=== PATIENT | female | born 1930 | race Caucasian/White ===

== ENCOUNTER 2017-07-01 12:56 | Observation (INO) | payer MEDICARE, BC ==
--- NOTE | 2017-07-01 14:33 | CT ---
CT OF BRAIN PERFORMED WITHOUT CONTRAST ENHANCEMENT: COMPARISON: 05/21/17 study. HISTORY: Dizziness today. History of meningioma. FINDINGS: Postoperative changes with craniotomy changes of the left frontal bone are again noted. There is un derlying encephalomalacia change in this area. 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 No signs of intracerebral hemorrhage or extraaxial fluid collections. The mastoid air cells and visualized sinuses are clear. IMPRESSION: No acute intracranial abnormalities. POS: [facility]
--- NOTE | 2017-07-01 14:34 | RAD ---
PORTABLE CHEST: HISTORY: Syncope. FINDINGS: The heart size is borderline considering portable technique. There are atherosclerotic changes of t he aorta. Lungs show some mild chronic change. IMPRESSION: Borderline to minimal cardiomegaly. No acute process. POS: [facility]
[2017-07-01 14:55] LABS: #Basophils 0.1 thou/uL (0.0-0.2); #Eosinphils 0.2 thou/uL (0.0-0.7); #Lymphocytes 1.2 thou/uL (1.20-3.40); #Monocytes 0.5 thou/uL (0.11-0.59); %Basophils 0.8 % (0.0-1.0); %Eosinophils 2.6 % (0.0-10.0); %Lymphocytes 17.4 % (21.0-51.0); %Monocytes 6.6 % (0.0-10.0); Hematocrit 44.5 % (36.0-47.0); Mean Platelet Volume 7.9 fL (7.4-10.4); Red Blood Cell (RBC) Count 4.44 mill/uL (4.20-5.40); White Blood Cell (WBC) Count 6.9 thou/uL (4.8-10.8)
[2017-07-01 15:19] LABS: ALT (SGPT) 18 U/L (8-55); AST (SGOT) 23 U/L (5-34); Alkaline Phosphatase 104 U/L (40-150); Anion Gap 14 mmol/L (10-20); BUN (Urea Nitrogen) 32 mg/dL (9.8-20.1); Bilirubin, Total 0.4 mg/dL (0.2-1.2); CK (CPK) 192 U/L (29-168); Calc. Creatinine Clearance 0 mL/min (70-130); Calcium 8.7 mg/dL (7.8-10.44); Carbon Dioxide 26 mmol/L (23-31); Chloride 104 mmol/L (98-107); Estimated GFR-MDRD 36; Globulin 2.8 g/dL (2.4-3.5); Lipase 26 U/L (8-78); Protein, Total 6.3 g/dL (6.0-8.3)
[2017-07-01 17:02] LABS: Bilirubin Negative (Negative); Blood, Urine Negative (Negative); Glucose, Urine (Dipstick) Negative (Negative); Ketone, Urine Negative (Negative); Nitrite Negative (Negative); Protein, Urine (Dipstick) Negative (Neg-Trace); Urobilinogen 0.2 mg/dL (0.2-1.0)
[2017-07-01 17:05] LABS: Hyaline Casts/LPF 4-6 HYALINE CAST LPF (0-3 Hyaline); Squamous Epithelial 0-3 HPF (0-3)
[2017-07-01 17:20] LABS: Bacteria/HPF 3+ HPF (None Seen); RBC/HPF None Seen HPF (0-3)
[2017-07-01] MEDS ORDERED: Potassium Chloride 20 MEQ TAB ONE ×2 (17:57→17:58)
[2017-07-01] MEDS ORDERED: Sodium Chloride 0.9% 100 ML ONE (17:58)
[2017-07-01] MEDS ORDERED: cefTRIAXone\\ROCEPHIN 1 GM VIAL ONE (17:58)
[2017-07-01] MEDS ORDERED: Ondansetron HCl/PF 4 MG/2 ML Vial IVP PRN (20:05)
[2017-07-01] MEDS ORDERED: Mag-Al 1200 mg/1200 mg/30 ML UDCUP PO PRN (20:05)
[2017-07-01] MEDS ORDERED: Acetaminophen 325 MG TAB PO PRN (20:05)
[2017-07-01] MEDS ORDERED: Ondansetron ODT 4 MG TAB PO PRN (20:05)
[2017-07-01 20:09] VITALS: BMI 30.9
--- NOTE | 2017-07-01 20:16 | HP ---
PRIMARY CARE PHYSICIAN: Dr. Parekh. CHIEF COMPLAINT: Feeling dizzy and off balance. HISTORY OF PRESENT ILLNESS: Ms. Rm is a pleasant 87-year-old female that since then she was doing fine until earlier today around 01:00, she had gone out to eat with a friend and she says that after eating she was getting up to walk across the room when she felt dizzy and off balance and says that she was stumbling and her friend had to help her out. She does admit that earlier that day most of the day she was feeling bad \\\\"all morning.\\\\" She denies having any headache or chest pain and no focal weakness. She does admit that she had decreased how much she takes in as far as her fluids b ecause she was concerned that she had to go to the bathroom more often. She says that she has notic ed increased urine output, but she says that she has noticed some urinary frequency and some difficu lty controlling the urine, but no dysuria, no fevers, no chills, no abdominal pain. In the ER, she had a CT scan of the brain, which showed no significant changes. However, it is noted that she did have recent surgery for meningioma, but no new changes there. However, urine test did show positive leukocytes as well as 3+ bacteria and her creatinine was also elevated and it is suspected that she has some mild acute renal failure as well as a urinary tract infection, which likely caused her sym ptoms. REVIEW OF SYSTEMS: General: She has had no fevers, no chills, no night sweats, no weight loss. HE ENT: No headaches, but she has had some dizziness. No sore throat, rhinorrhea, neck pain, no adeno misael. Pulmonary: No hemoptysis, no cough, no wheezing. Cardiovascular: No chest pain, no shortn ess of breath, no PND, no orthopnea. Gastrointestinal: No abdominal pain, no nausea, no vomiting, no change in bowels. Genitourinary: No urinary frequency, hematuria, no hesitancy. Neurologic: N o focal weakness or seizure. Psychiatric: No symptoms of anxiety or depression. Skin and integume nt: No skin changes. No rash. PAST MEDICAL HISTORY: Significant for hypertension, elevated cholesterol, frequent urinary tract in fections as well as memory loss. PAST SURGICAL HISTORY: She has had a meningioma resected, thyroidectomy, tonsillectomy and hysterec edie. ALLERGIES: No known drug allergies. SOCIAL HISTORY: She is . She lives at [facility]. She is a nonsmoker, nondrinker, has tw o children. FAMILY HISTORY: Significant for lung disease and lung cancer. CURRENT MEDICATIONS: Include aspirin 81 mg daily, Bystolic 20 mg daily, Namenda 5 mg twice a day, l evothyroxine 125 mcg daily, losartan/hydrochlorothiazide 100/25 one tablet daily, Super B-Complex on ce a day and PreserVision 2 tablets once a day. PHYSICAL EXAMINATION: GENERAL: She is alert and oriented. She appears to be in no acute distress. Currently, she says t hat she feels fine. VITAL SIGNS: Blood pressure was 136/58, heart rate 63, respiratory rate of 14, temperature is 97.6. HEENT: Pupils are equal, round, and reactive. Extraocular muscles are intact. Her sclerae are ani cteric. Throat: No erythema, no exudates. NECK: No adenopathy, no bruits. LUNGS: Clear. No wheezing, no rales. CARDIOVASCULAR: She has a normal S1, S2. I did not appreciate an S3 or S4. No murmurs, clicks, no rubs. ABDOMEN: Soft, it is nontender, nondistended. Positive for bowel sounds. No rebound, no guarding. EXTREMITIES: There is no edema. NEUROLOGIC: The exam is grossly nonfocal. SIGNIFICANT LABORATORY RESULTS: Urinalysis showed large leukocyte esterase, greater than 50 wbc's, 3+ bacteria. White blood cell count 6.9, hemoglobin 14.9, hematocrit is 44.5, platelet count is 233 . Sodium 141, potassium 3.1, chloride is 104, CO2 is 26, BUN of 32, creatinine 1.39, glucose is 121 . ASSESSMENT AND PLAN: This is a pleasant 87-year-old female that presents with dizziness and some we akness, likely as a result of some mild acute renal failure and dehydration. The urinary tract infe ction likely contributed as well. She has had some what sounds like mild urinary incontinence or ur ge incontinence. She will be admitted to the medical floor, started on IV fluids and empiric IV ant ibiotics. Urine cultures have been taken from the ER. We will place her on Rocephin and Levaquin, pending results of her cultures, and get a PT and OT consult and reassess her in the a.m.
[2017-07-01] MEDS: levETIRAcetam 500 MG TAB PO SCH (20:46)
[2017-07-01] MEDS: NS 0.9% w/ 20 MEQ KCL 1,000 ML/1,000 ML BAG IV SCH (21:58)
[2017-07-02 04:34] LABS: #Eosinphils 0.3 thou/uL (0.0-0.7); #Lymphocytes 1.8 thou/uL (1.20-3.40); #Monocytes 0.7 thou/uL (0.11-0.59); #Neutrophils 4.3 thou/uL (1.40-6.50); %Basophils 0.4 % (0.0-1.0); %Eosinophils 4.4 % (0.0-10.0); %Lymphocytes 25.1 % (21.0-51.0); %Monocytes 9.4 % (0.0-10.0); Hematocrit 37.1 % (36.0-47.0); Mean Platelet Volume 7.4 fL (7.4-10.4); Red Blood Cell (RBC) Count 3.71 mill/uL (4.20-5.40); White Blood Cell (WBC) Count 7.1 thou/uL (4.8-10.8)
[2017-07-02 04:59] LABS: Anion Gap 10 mmol/L (10-20); BUN (Urea Nitrogen) 30 mg/dL (9.8-20.1); Calc. Creatinine Clearance 47 mL/min (70-130); Calcium 8.1 mg/dL (7.8-10.44); Carbon Dioxide 25 mmol/L (23-31); Chloride 110 mmol/L (98-107); Estimated GFR-MDRD 46
[2017-07-02] MEDS: Levothyroxine Sodium 125 MCG TAB PO SCH (05:44)
[2017-07-02] MEDS: Enoxaparin Sodium 30 MG/0.3 ML SYRINGE SC SCH (08:05)
[2017-07-02] MEDS: NS 0.9% w/ 20 MEQ KCL 1,000 ML/1,000 ML BAG IV SCH ×2 (08:05→17:10)
[2017-07-02] MEDS: Atorvastatin Calcium 20 MG TAB PO SCH (08:06)
[2017-07-02] MEDS: Nebivolol HCl 5 MG TAB PO SCH (08:06)
[2017-07-02] MEDS: levETIRAcetam 500 MG TAB PO SCH ×2 (08:06→20:33)
--- NOTE | 2017-07-02 12:37 | PDOC.PN ---
- Subjective Encounter Start Date: 07/02/17 Encounter Start Time: 12:35 Ms. Rm feels fine, except she notes loose stools which she has been having for several weeks. She denies any abdominal pain with it, and says she has about 2- 3 stools a day. She says they give her " something for it" at [facility], but it never goes completely away. - Objective Resuscitation Status: Resuscitation Status FULL:Full Resuscitation MAR Reviewed: Yes Vital Signs & Weight: Vital Signs (12 hours) Temp Pulse Pulse Pulse Pulse Resp BP 07/02/17 10:49 97.7 F 60 16 07/02/17 09:13 60 62 63 143/75 H 07/02/17 07:54 97.3 F L 58 L 16 07/02/17 07:05 97.3 F L 58 L 16 07/02/17 04:20 97.7 F 55 L 16 BP BP BP Pulse Ox Pulse Ox 07/02/17 10:49 142/65 H 97 07/02/17 09:13 175/73 H 142/69 H 100 07/02/17 07:54 07/02/17 07:05 136/68 97 07/02/17 04:20 152/66 H 95 Weight Weight 180 lb I&O: 07/01/17 07/02/17 07/03/17 06:59 06:59 06:59 Intake Total 1174 Output Total 400 Balance 774 Result Diagrams: 07/02/17 04:21 07/02/17 04:21 Phys Exam - Physical Examination HEENT: PERRLA Respiratory: no wheezing, no rales, no rhonchi, clear to auscultation bilateral Cardiovascular: RRR, no significant murmur, no rub Gastrointestinal: soft, non-tender, positive bowel sounds Musculoskeletal: no edema Dx/Plan (1) Diarrhea Code(s): R19.7 - DIARRHEA, UNSPECIFIED Status: Acute (2) Dementia Code(s): F03.90 - UNSPECIFIED DEMENTIA WITHOUT BEHAVIORAL DISTURBANCE Status: Chronic Qualifiers: (3) Obesity (BMI 30.0-34.9) Code(s): E66.9 - OBESITY, UNSPECIFIED Status: Chronic (4) Old cerebrovascular accident (CVA) 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 * Dementia- stable
[2017-07-02] MEDS ORDERED: cefTRIAXone\\ROCEPHIN 1 GM in Sodium Chloride 0.9% 100 ML IVPB SCH (18:00)
[2017-07-03] MEDS: Levothyroxine Sodium 125 MCG TAB PO SCH (04:36)
[2017-07-03 07:44] VITALS: TEMP 98.3
[2017-07-03] MEDS: Atorvastatin Calcium 20 MG TAB PO SCH (07:50)
[2017-07-03] MEDS: Nebivolol HCl 5 MG TAB PO SCH (07:50)
[2017-07-03] MEDS: levETIRAcetam 500 MG TAB PO SCH (07:50)
[2017-07-03] MEDS: Enoxaparin Sodium 30 MG/0.3 ML SYRINGE SC SCH (07:52)
[2017-07-03 11:16] VITALS: BP 165/83
--- NOTE | 2017-07-03 13:19 | PDOC.PN ---
- Subjective Encounter Start Date: 07/03/17 Encounter Start Time: 13:18 Ms. Rm says she feels better. She was seen up walking with PT. - Objective Resuscitation Status: Resuscitation Status FULL:Full Resuscitation MAR Reviewed: Yes Vital Signs & Weight: Vital Signs (12 hours) Temp Pulse Resp BP BP Pulse Ox 07/03/17 10:39 165/83 H 07/03/17 08:00 98.3 F 55 L 16 07/03/17 07:12 98.3 F 55 L 16 213/83 H 100 07/03/17 04:33 97.8 F 62 16 158/68 H 98 Weight Weight 181 lb I&O: 07/02/17 07/03/17 07/04/17 06:59 06:59 06:59 Intake Total 1174 1460 250 Output Total 400 800 Balance 774 660 250 Result Diagrams: 07/02/17 04:21 07/02/17 04:21 Phys Exam - Physical Examination HEENT: PERRLA Respiratory: no wheezing, no rales, no rhonchi, clear to auscultation bilateral Cardiovascular: RRR, no significant murmur, no rub Gastrointestinal: soft, non-tender, positive bowel sounds Musculoskeletal: no edema Dx/Plan (1) Diarrhea Code(s): R19.7 - DIARRHEA, UNSPECIFIED Status: Acute (2) Dementia Code(s): F03.90 - UNSPECIFIED DEMENTIA WITHOUT BEHAVIORAL DISTURBANCE Status: Chronic Qualifiers: (3) Obesity (BMI 30.0-34.9) Code(s): E66.9 - OBESITY, UNSPECIFIED Status: Chronic (4) Old cerebrovascular accident (CVA) without late effect Code(s): Z86.73 - PRSNL HX OF TIA (TIA), AND CEREB INFRC W/O RESID DEFICITS Status: Chronic (5) UTI (urinary tract infection) Status: Ruled-out - Plan * UTI- unfortunately the sample was more consistent with a contaminated sample * Diarrhea- she had C. Diff antigen positive, and toxin negative. Since she is symptomatic, will treat with a course of Flagyl, and continue a probiotic * HTN- blood pressure is elevated- prefer for her Primary Care Provider to handle this as an outpatient * Stable for discharge home..
--- NOTE | 2017-07-03 17:06 | DIS ---
PRIMARY CARE PHYSICIAN: Feliz Parekh MD DATE OF ADMISSION: 07/01/2017 DATE OF DISCHARGE: 07/03/2017 DISCHARGE DISPOSITION: Home. DISCHARGE DIAGNOSES: 1. Urinary tract infection. 2. Clostridium difficile diarrhea. 3. Hypertension, uncontrolled. 4. Elevated cholesterol. DISCHARGE MEDICATIONS: Include Flagyl 500 mg 1 p.o. t.i.d. for 7 days as well as Florastor 250 mg 1 p.o. daily for 30 days. She is to continue Keppra 250 mg twice daily, Super B-Complex 150 mg daily , vitamin A and C 2 tablets twice a day, Seroquel 25 mg twice a day, Bystolic 20 mg daily, Namenda 5 mg twice a day, losartan and hydrochlorothiazide 100/25 one tablet daily, levothyroxine 125 mcg p.o . daily, Lipitor 20 mg daily, and aspirin 81 mg a day. CODE STATUS: FULL CODE. ALLERGIES: No known drug allergies. HOSPITAL COURSE: Ms. Rm is an 87-year-old female who presented to the emergency room after feeling dizzy and off balance. Her initial evaluation in the ER was essentially negative except for 3+ dickson teria and positive leukocytes on her urinalysis. She was brought in for presumed urinary tract infe ction causing her symptoms. However, after she had been admitted a day or two, she revealed that halie mata has been having diarrhea for several weeks, what she says at the [facility] they had not been ab le to \\\\"get rid of it.\\\\" Stool studies were done and demonstrated that she had C. diff antigen po sitive, toxin negative situation and since she is symptomatic, this will be treated. Her urine cult ure grew multiple organisms with less than 100,000 colony forming units, and therefore, was consider ed a contaminant, and in retrospect, she had very minimal urinary tract symptoms to begin with, so t his is likely asymptomatic bacteriuria. She will, therefore, be discharged back to [facility] ass isted living on medication for C. difficile as well as a probiotic. It was also noted that her bloo d pressure was more or less labile but more on the higher side. Since she is in advanced age, I am reluctant to adjust her medications here in the hospital while sending her home. Therefore, we will leave this up to her primary care physician to make the small changes if needed as it is noted that she had been off her antihypertensive, the losartan and hydrochlorothiazide, due to some renal insu fficiency. It is possible that once if this is restarted, her blood pressure may normalize. Yaneth gutierrez, this can be managed as an outpatient and she will be discharged home today and we recommend possibly home PT and OT.
== END 2017-07-03 16:55 | disposition home or self-care (01) ==
LOC: ERS 12:56 → 2SW 18:01
PROVIDERS: ADMIT Internal Medicine; ATTEND Internal Medicine
DX: N39.0 Urinary tract infection, site not specified (principal); I10 Essential (primary) hypertension; E78.00 Pure hypercholesterolemia, unspecified; Z79.82 Long term (current) use of aspirin; Z79.899 Other long term (current) drug therapy; Z90.710 Acquired absence of both cervix and uterus; Z90.89 Acquired absence of other organs; Z98.890 Other specified postprocedural states
CPT/HCPCS: 70450; 71010; 80048; 80053; 82274; 82550; 82553; 83690; 84439; 84443; 84484; 85025 ×2; 87086; 87324; 87449 ×2; 93005; 96361; 96365; 96366 ×3; 96367; 96372 ×2; 97139 ×3; 99285; G0378; G8978; G8979; G8980; 36415; 81003; 81015; A4216; J0696; J1650; J1956; J7050

== ENCOUNTER 2017-07-05 12:32 | Outpatient (CLI) | payer MEDICARE, BC | END 2017-07-05 12:33 | disposition home or self-care (01) | LOC: EEG 12:32 | PROVIDERS: ATTEND Student in an Organized Health Care Education/Training Program | DX: D32.9 Benign neoplasm of meninges, unspecified (principal); G93.9 Disorder of brain, unspecified; D43.2 Neoplasm of uncertain behavior of brain, unspecified | CPT/HCPCS: 95816 ==

== ENCOUNTER 2017-07-10 11:46 | Observation (INO) | payer MEDICARE, BC ==
[2017-07-10 12:40] LABS: #Basophils 0.1 thou/uL (0.0-0.2); #Eosinphils 0.3 thou/uL (0.0-0.7); #Lymphocytes 1.7 thou/uL (1.20-3.40); #Monocytes 0.6 thou/uL (0.11-0.59); #Neutrophils 4.9 thou/uL (1.40-6.50); %Basophils 1.1 % (0.0-1.0); %Eosinophils 3.3 % (0.0-10.0); %Lymphocytes 22.2 % (21.0-51.0); %Monocytes 8.5 % (0.0-10.0); Hematocrit 44.3 % (36.0-47.0); Mean Platelet Volume 7.7 fL (7.4-10.4); Red Blood Cell (RBC) Count 4.38 mill/uL (4.20-5.40); White Blood Cell (WBC) Count 7.6 thou/uL (4.8-10.8)
[2017-07-10 12:58] LABS: ALT (SGPT) 47 U/L (8-55); AST (SGOT) 63 U/L (5-34); Alkaline Phosphatase 95 U/L (40-150); Anion Gap 13 mmol/L (10-20); BUN (Urea Nitrogen) 20 mg/dL (9.8-20.1); Bilirubin, Total 0.5 mg/dL (0.2-1.2); CK (CPK) 215 U/L (29-168); Calc. Creatinine Clearance 0 mL/min (70-130); Calcium 8.8 mg/dL (7.8-10.44); Carbon Dioxide 26 mmol/L (23-31); Chloride 104 mmol/L (98-107); Estimated GFR-MDRD 46; Globulin 2.7 g/dL (2.4-3.5); Protein, Total 6.2 g/dL (6.0-8.3)
[2017-07-10 12:58] LABS: Bilirubin Negative (Negative); Glucose, Urine (Dipstick) Negative (Negative); Ketone, Urine Negative (Negative); Nitrite Negative (Negative); Protein, Urine (Dipstick) Negative (Neg-Trace); Urobilinogen 0.2 mg/dL (0.2-1.0)
[2017-07-10 13:00] LABS: Bacteria/HPF None Seen HPF (None Seen); Hyaline Casts/LPF 0-3 HYALINE CAST LPF (0-3 Hyaline); WBC/HPF 0-3 HPF (0-3)
[2017-07-10 13:00] LABS: Troponin I Less than 0.010 ng/mL (< 0.028)
[2017-07-10 13:13] LABS: Blood, Urine Negative (Negative); RBC/HPF 0-3 HPF (0-3); Yeast-All Forms Rare HPF (None Seen)
[2017-07-10] MEDS ORDERED: traMADol HCl 50 MG TAB PO PRN (13:44)
[2017-07-10] MEDS ORDERED: Diabetic Tussin 200 MG/10 ML UDCUP PO PRN (13:44)
[2017-07-10] MEDS ORDERED: Bisacodyl 5 MG TAB PO PRN ×2 (13:44)
[2017-07-10] MEDS ORDERED: traZODone HCl 50 MG TAB PO PRN (13:44)
[2017-07-10] MEDS ORDERED: Nitroglycerin 0.4 MG TAB (25 Tab Bottle) SL PRN (13:44)
[2017-07-10] MEDS ORDERED: Calcium Carbonate 500 MG ChewTAB PO PRN (13:44)
[2017-07-10] MEDS ORDERED: Loratadine 10 MG TAB PO PRN (13:44)
[2017-07-10] MEDS ORDERED: Senokot 8.6 MG TAB PO PRN (13:44)
[2017-07-10] MEDS ORDERED: Acetaminophen 325 MG TAB PO PRN (13:44)
[2017-07-10] MEDS ORDERED: Benzonatate 100 MG CAP PO PRN (13:44)
[2017-07-10] MEDS ORDERED: Mag-Al 1200 mg/1200 mg/30 ML UDCUP PO PRN (13:44)
[2017-07-10] MEDS ORDERED: Ondansetron HCl/PF 4 MG/2 ML Vial IVP PRN (13:44)
[2017-07-10 13:47] LABS: Lactic Acid - Sepsis 3.1 mmol/L (0.5-2.2)
[2017-07-10] MEDS ORDERED: Potassium Chloride 40 MEQ in Sodium Chloride 0.9% 500 ML IVPB SCH (14:45)
[2017-07-10 15:56] VITALS: BMI 32.5
[2017-07-10] MEDS ORDERED: FLU VACC TS2017-18 (>65YR) 0.5 ML SYRINGE IM ONE (16:15)
--- NOTE | 2017-07-10 16:27 | HP ---
DATE OF ADMISSION: 07/10/2017 PRIMARY CARE PHYSICIAN: Feliz Parekh MD CHIEF COMPLAINT: Feeling dizzy and then having a syncopal episode. HISTORY OF PRESENT ILLNESS: Ms. Rm is a very pleasant 87-year-old female with past medical history of meningioma of the brain, status post resection earlier this year as well as history of hypertens ion and recent C. difficile colitis who presented with the above-mentioned complaint. History is ma inly obtained by the patient herself and electronic medical records have been reviewed in detail. T he case has been discussed with the admitting ER physician, Dr. Stallworth. The patient was last admitted to our facility recently from 07/01/2017 to 07/03/2017. At this time, she was treated for C. difficile diarrhea and was discharged on Flagyl. She lives in [facility]. The patient has some dementia and is not a very good historian. According to the reports, she has b een feeling fine up until today when she had one episode of vomiting. Otherwise, she denies any rec ent illnesses. When asked about her diarrhea, she reports that her diarrhea has been consistent for the last several months. She seemed confused as to how long it has been going on. She reports mul tiple episodes of loose stools every day. She only had one episode of vomiting today. She denies a ny abdominal pain. She denies any chest pain, palpitation, shortness of breath, fever, or chills. She denies any dysuria, frequency, or urgency. According to the ER physician, EMS reported that the patient had a syncopal episode. Nevertheless, when the patient was brought into the emergency room , she was hemodynamically stable. Her initial workup included a 12-lead EKG, which shows sinus bogdan ycardia at 58 beats per minute. There is one rhythm strip that captured a left bundle branch block. Her blood pressure was 120/72 with a pulse of 62 upon presentation. Her lab shows mildly elevated creatinine kinase at 215 with CK-MB of 9.3 with normal troponin. Her creatinine is slightly bumped up to 1.12. Lactic acid is 3.1. Urinalysis shows moderate leukocyte esterase with squamous epithe lial cells. Chest x-ray was not done in the ER. She is now being admitted for further workup of sy ncope. PAST MEDICAL HISTORY: 1. History of meningioma, status post resection, 03/2017. 2. History of seizure disorder. 3. Dementia. 4. History of CVA. 5. Obesity. 6. History of chronic atrial fibrillation, rate controlled, not on any anticoagulation. 7. Hypothyroidism. 8. History of subdural hematoma. 9. History of UTIs. PAST SURGICAL HISTORY: 1. Craniotomy and tumor resection on 03/17/2017 for WHO grade II atypical meningioma. 2. Thyroidectomy. 3. Tonsillectomy 4. Hysterectomy. ALLERGIES: No known medication allergies. SOCIAL HISTORY: She is and currently lives at [facility]. Her daughter lives close by an d is . She has no history of drug, tobacco, or alcohol abuse. CODE STATUS: Do not resuscitate, do not intubate. I have discussed this with the patient who santiago sueroed understanding. FAMILY HISTORY: Significant for lung cancer. CURRENT MEDICATIONS: As per the most recent discharge orders from 7 days ago, she is on Keppra 250 mg p.o. b.i.d., vitamin B complex, multivitamin, Florastor daily, Seroquel 25 mg p.o. b.i.d., Bystol ic 20 mg daily, memantine 5 mg p.o. b.i.d., losartan/hydrochlorothiazide 100/25 mg daily, Synthroid 125 mcg daily, Lipitor 20 mg daily, and aspirin 81 mg daily. REVIEW OF SYSTEMS: The following complete review of systems was negative, unless otherwise mentione d in the HPI or below: CONSTITUTIONAL: Weight loss or gain, ability to conduct usual activities. SKIN: Rash, itching. EYES: Double vision, pain. ENT/MOUTH: Nose bleeding, neck stiffness, pain, tenderness. CARDIOVASCULAR: Palpitations, dyspnea on exertion, orthopnea. RESPIRATORY: Shortness of breath, wheezing, cough, hemoptysis, fever or night sweats. GASTROINTESTINAL: Poor appetite, abdominal pain, heartburn, nausea, vomiting, constipation, or diar laisha. GENITOURINARY: Urgency, frequency, dysuria, nocturia. MUSCULOSKELETAL: Pain, swelling. NEUROLOGIC/PSYCHIATRIC: Anxiety, depression. ALLERGY/IMMUNOLOGIC: Skin rash, bleeding tendency. It is negative except for those mentioned in the history and physical. LABORATORY AND DIAGNOSTIC DATA: Her CBC shows WBC is 7.6 with 64% neutrophils, hemoglobin and hemat ocrit within normal limits, platelet count within normal limits. Serum chemistries show potassium o f 3.3, creatinine 1.12 with baseline creatinine being normal. Lactic acid initially at 3.1. TSH no rmal. Lipid panel normal, troponin is less than 0.010. Urinalysis, trace leukocyte esterase, but w ith squamous epithelial cells. A 12-lead EKG by my review showed sinus bradycardia with left axis d eviation. No acute ST or T wave changes. PHYSICAL EXAMINATION: VITAL SIGNS: Upon presentation include blood pressure 120/72, pulse is 62, oxygen saturation 95% on room air, respirations 15, temperature 97.9. GENERAL: She is sitting upright in bed, appears somewhat slow, but appropriate. No acute distress. Awake, alert, oriented x3. Age appropriate. HEENT: Mucous membrane is moist and pink. No oropharyngeal exudate or erythema. Head is normoceph alic, atraumatic. Nystagmus is present. No conjunctival pallor. No scleral icterus. NECK: Supple without any lymphadenopathy, JVD, or bruit. CHEST: Clear to auscultation without any wheezing, rales, or rhonchi. CARDIOVASCULAR: Rhythm is regular without any murmur, rubs, or gallops. ABDOMEN: Soft, nontender, nondistended. No guarding, rebound, or rigidity. EXTREMITIES: Have trace pitting edema bilaterally. No calf tenderness. NEUROLOGIC: Nonfocal. SKIN: Free of any rashes or bruises, feels warm and dry to touch. PSYCHIATRIC: Appears somewhat slow. IMPRESSION AND PLAN: 1. Syncope. This patient has sinus bradycardia and left bundle branch block, but when discussed [facility] on-call slip bridge operator, Brown, it was found out that this is not new for the patient. We will con ken to trend serial cardiac enzymes and admitted her at telemetry unit. We will consult her cardi ologist, Dr. Garcia, in the morning. At this time, given her history of meningioma with resection ; we will repeat an MRI of the brain. She will also undergo transthoracic echocardiogram as well as carotid Doppler ultrasound to rule out alternative causes of syncope. Most likely this patient has dehydration due to persistent diarrhea and vomiting earlier today. 2. We will resuscitate her with IV fluids and also check orthostatics. Monitor blood pressure clos lorena and restart her home medications judiciously with parameters. Also recheck for C. diff. The li kelihood of infection is very low at this time. 3. Elevated lactic acid is likely secondary to the dehydration. We will check a chest x-ray for th e completion of infectious workup. Urine does have some leukocyte esterase and it appears a contami nation at this time. We will recheck urine in the morning after IV fluid resuscitation. We will ho ld off on starting antibiotics for now. Start her on normal saline at 75 mL for now. 4. Sinus bradycardia. This is secondary to the patient being on beta jacinto. Her heart rate is i n the low to high 50s and she is currently asymptomatic. At this time, no medication adjustment is warranted. 5. Recent Clostridium difficile infection. The patient has finished a course of Flagyl and we will reject her stool samples to assess any reoccurrence for Clostridium difficile, though it is highly unlikely. 6. History of meningioma, status post resection. Check MRI of the brain as above. The patient bre ears to be at her baseline. It seems like the patient has an [facility] done as an [facility]. I do not have the results of that. We will restart her anti-seizure medication. 7. History of seizure disorder. Restart her medications as above. 8. Hypertension. We will resume her home medications once confirmed. 9. Code status: Do not resuscitate and intubate as above. 10. Add p.r.n. medication ordered and deep venous thrombosis and gastrointestinal prophylaxis. DISPOSITION: The patient is currently being admitted under observation status for syncopal episode. Further management will depend upon her clinical course.
[2017-07-10] MEDS: Sodium Chloride 0.9% 1,000 ML IV SCH ×2 (16:29→20:46)
[2017-07-10 16:30] LABS: Troponin I 0.043 ng/mL (< 0.028)
--- NOTE | 2017-07-10 16:43 | ULT ---
CAROTID DUPLEX SONOGRAM: History: Syncope. Vascular disease. FINDINGS: Right: Mild plaque is present. Color and spectral doppler evaluation, peak systolic velocity of 100 cm/sec, and IC/CC ratio of 1.2 suggests no hemodynamically significant stenosis within the extracran ial right ICA. Antegrade flow is present within the vertebral artery. Left: There is scattered mild plaque. Color and spectral doppler evaluation, peak systolic velocity of 97 cm/sec, and IC/CC ratio of 1.3 suggests no hemodynamically significant stenosis within the ext racranial left ICA. Antegrade flow is present within the vertebral artery. IMPRESSION: Mild atherosclerosis. There is no sonographic evidence of significant extracranial ICA stenosis. POS: [facility]
--- NOTE | 2017-07-10 16:55 | RAD ---
CHEST ONE VIEW: History: Vomiting. Syncope. Comparison: 07-01-17 FINDINGS: Cardiac silhouette is magnified and upper limits of normal in size. Pulmonary vasculature is at the upper limits of normal. Mediastinum is midline with aortic calcification. There is no confluent airs pace consolidation or evidence of pneumothorax. Old left rib fracture is apparent. child [facility] care [facility] worker l nilay overlie the chest. IMPRESSION: Atherosclerosis. POS: [facility]
[2017-07-10] MEDS: levETIRAcetam 500 MG TAB PO SCH (20:43)
[2017-07-11 04:38] LABS: #Basophils 0.1 thou/uL (0.0-0.2); #Eosinphils 0.3 thou/uL (0.0-0.7); #Lymphocytes 1.6 thou/uL (1.20-3.40); #Monocytes 0.5 thou/uL (0.11-0.59); #Neutrophils 3.1 thou/uL (1.40-6.50); %Basophils 0.9 % (0.0-1.0); %Eosinophils 4.7 % (0.0-10.0); %Lymphocytes 28.8 % (21.0-51.0); %Monocytes 9.8 % (0.0-10.0); Anion Gap 6 mmol/L (10-20); BUN (Urea Nitrogen) 17 mg/dL (9.8-20.1); Calc. Creatinine Clearance 66 mL/min (70-130); Calcium 7.8 mg/dL (7.8-10.44); Carbon Dioxide 26 mmol/L (23-31); Chloride 112 mmol/L (98-107); Estimated GFR-MDRD 64; Hematocrit 32.7 % (36.0-47.0); Mean Platelet Volume 7.9 fL (7.4-10.4); Red Blood Cell (RBC) Count 3.22 mill/uL (4.20-5.40); White Blood Cell (WBC) Count 5.6 thou/uL (4.8-10.8)
[2017-07-11 05:30] LABS: Bilirubin Negative (Negative); Blood, Urine Negative (Negative); Glucose, Urine (Dipstick) Negative (Negative); Ketone, Urine Negative (Negative); Nitrite Negative (Negative); Protein, Urine (Dipstick) Negative (Neg-Trace); Urobilinogen 0.2 mg/dL (0.2-1.0)
[2017-07-11] MEDS ORDERED: Levothyroxine Sodium 125 MCG TAB PO SCH (06:00)
[2017-07-11 07:58] VITALS: TEMP 98.1
[2017-07-11] MEDS: levETIRAcetam 500 MG TAB PO SCH (08:50)
[2017-07-11] MEDS: Sodium Chloride 0.9% 1,000 ML IV SCH (08:52)
[2017-07-11] MEDS ORDERED: Saccharomyces boulardii 250 MG CAP PO SCH (09:00)
[2017-07-11] MEDS ORDERED: Enoxaparin Sodium 40 MG/0.4 ML SYRINGE SC SCH (09:00)
[2017-07-11] MEDS ORDERED: Atorvastatin Calcium 20 MG TAB PO SCH (09:00)
[2017-07-11] MEDS ORDERED: Nebivolol HCl 5 MG TAB PO SCH (09:00)
[2017-07-11] MEDS ORDERED: Magnesium 2 GM/NS 0.9% 100 ML 2 GM in Premix Bag 1 BAG IVPB SCH (09:15)
[2017-07-11] MEDS: Potassium Chloride 20 MEQ TAB PO SCH ×2 (10:34→17:12)
[2017-07-11 15:17] VITALS: BP 132/60
--- NOTE | 2017-07-11 15:44 | CON ---
DATE OF CONSULTATION: 07/11/2017 HISTORY: Delicia Rm is an 87-year-old white female that I initially evaluated in 08/2012. She was sent for evaluation of atrial fibrillation. EKG in her primary doctor's office showed atrial fibrillation; however, when I saw her in the office, she was back in normal sinus rhythm. She also had left bundle branch block. She underwent Lexiscan Cardiolite testing which revealed no evidence of ischemia or fixed defect. She has been followed intermittently in the office and for the most part has been in sinus rhythm. She also has intermittent left bundle branch block. She was last seen in 10/2016 and she was seen to be in atrial fibrillation at that time. She has not come back for followup. She has had an eventful time since last time I saw her. 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 She was just in the hospital recently with urinary tract infection as well as diarrhea and found to have Clostridium difficile. She was just discharged on 07/03/2017. Yesterday, she did not eat anything and went to get something to eat, but then apparently decided to go back to her room. She stated that she has continued to have diarrhea since discharge. When she stood up, she felt extremely weak and dizzy, but did not pass out and did not fall to the floor. Apparently someone helped her back to the chair, but at least from what she says, she did not lose consciousness. There is an outside hospital EKG in the chart that shows atrial fibrillation with a rate of 112 per minute; however, there is no name on the EKG, but I assume that is her EKG. She was then brought to the emergency room and EKG here showed sinus rhythm. She denies any chest discomfort or shortness of breath. 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 OPERATION: Resection of meningioma in 03/2017, thyroidectomy, hysterectomy, tonsillectomy. MEDICATIONS AT HOME: Synthroid 125 mg daily, Lipitor 20 daily, memantine 5 mg b.i.d., losartan/hydrochlorothiazide 100/25 daily, aspirin 81 daily, Keppra 250 b.i.d., Florastor 250 daily, Seroquel 25 b.i.d., Bystolic 20 mg daily, metronidazole 500 mg t.i.d. ALLERGIES: None. SOCIAL HISTORY: She lives at [facility]. She does not smoke or drink. CODE STATUS: DNR. FAMILY HISTORY: Negative for coronary artery disease. PHYSICAL EXAMINATION: VITAL SIGNS: 165/61, pulse 61. HEENT: PERRL. NECK: Supple. CHEST: Clear. CARDIAC: S1 and S2 are normal, without any S3, S4 or murmurs. Carotid upstrokes normal without bruits. ABDOMEN: Normal bowel sounds, without tenderness or organomegaly. EXTREMITIES: Revealed no clubbing, cyanosis or edema. NEUROLOGIC: Grossly intact. SKIN: Warm and dry. LABORATORY DATA: EKGs here reveals sinus bradycardia with PACs and evidence for anteroseptal myocardial infarction which is old. She also has intermittent left bundle branch block, probably rate dependent, hemoglobin 10.9, hematocrit 32.7, white count 5600, platelets 144,000 (hemoglobin has dropped from 14.6-10.9 ), sodium 140, potassium 3.3, chloride 104, carbon dioxide 26, BUN 20, creatinine 1.21. CK-MB is 9.3; however, troponin I is normal. CK-MB 215. TSH is normal. Cholesterol 99, triglycerides 105, HDL 39, LDL 39. IMPRESSION: 1. Near syncopal episode, probably due to volume depletion and diarrhea which apparently has not totally resolved. 2. Clostridium difficile enteritis. 3. Paroxysmal atrial fibrillation. When she was seen in 10/2016, she had an episode and again probably at the scene, she had atrial fibrillation. She has not been anticoagulated with history of subdural hematoma as well as recent meningioma resection. 4. Intermittent left bundle branch block. 5. Diastolic dysfunction. 6. Hypertension. 7. Hypercholesterolemia, under good control. 8. Left occipital cerebrovascular accident with hemorrhage. 9. Hypothyroidism. 10. Venous insufficiency. 11. Dementia. 12. Status post resection of meningioma. 13. History of seizure disorder. PLAN: Historically, it sounds like Ms. Rm did not have a true syncopal episode just extreme weakness and lightheadedness, although with her dementia, it may be hard to know if this is accurate. I feel that she has not had any significant arrhythmia thus far. She does have bradycardia with heart rates in the mid to upper 50s. I would gently hydrate her and continue to monitor while she is in the hospital and arrangements were made for an outpatient 30-day monitor. We also discussed implantation of a loop recorder if she continues to have episodes. LIBERTY
--- NOTE | 2017-07-11 16:25 | DIS ---
DATE OF ADMISSION: 07/10/2017 DATE OF DISCHARGE: 07/11/2017 DISCHARGE DIAGNOSES: 1. Moderate dehydration. 2. Syncope. 3. Hypertension. 4. Hyperlipidemia. 5. Recent Clostridium difficile colitis. CONSULTATIONS: Cardiology, Dr. Brown Garcia. PROCEDURES: None. HISTORY AND PHYSICAL: Ms. Rm is an 87-year-old female who [facility] for a syncopal episode at home. She was seen and evaluated in the Emergency [facility] and was subsequently admitted. Per history, she had a syncopal episode. Echocardiogram was large ly unremarkable, monitoring showed sinus bradycardia. This was a known condition. Orthostatics wer e negative after rehydration. HOSPITAL COURSE: The patient was seen and examined in the ER and admitted to the hospitalist davonte mata and started on IV fluids. Cardiology was consulted. Echocardiogram was done this morning that sh owed no acute changes. Cardiology consultation did reveal old left bundle branch block and episodes of bradycardia. Dr. Garcia felt she was stable for discharge once her hydration status was khushi lized with outpatient Holter monitoring. She received IV fluids of the day. Orthostatics done this afternoon showed no drop in blood pressur e with positional changes that were significant. She was stable for discharge from a [facility]. She did have a history of recent Clostridium difficile infection. A repeat Clostridium difficile te sting was negative. She had no bowel movement the entire day today. Vital signs remained otherwise stable. She is stable for discharge with outpatient followup. PHYSICAL EXAMINATION: Patient was seen and examined on the day. Discharge plan and disposition wer e discussed with the patient. The patient was placed at the bedside. DISCHARGE MEDICATIONS: 1. Aspirin 81 mg daily. 2. Atorvastatin 20 mg p.o. at bedtime. 3. Levothyroxine 125 mcg daily. 4. Losartan/HCTZ one tablet daily. 5. Memantine 5 mg p.o. b.i.d. 6. Bystolic 20 mg daily. 7. Quetiapine 25 mg p.o. b.i.d. 8. Florastor 250 mg p.o. daily. 9. Vitamin C, E, zinc, copper and Lutein 1 capsule b.i.d. 10. Keppra 250 mg p.o. b.i.d. 11. Flagyl 500 mg p.o. t.i.d. to complete whatever she has not completed yet. FOLLOWUP APPOINTMENTS: 1. Primary care physician within a week. 2. Dr. Brown Garcia 2-3 weeks or per his clinic. Outpatient Holter monitoring will be made as wenceslao isaac mailed to the patient for her to apply once it arrives. DISCHARGE DISPOSITION: The patient will be discharged home to her Memory Unit. DISCHARGE CONDITION: Good.
== END 2017-07-11 18:15 | disposition home or self-care (01) ==
LOC: ERS 11:46 → 2SW 15:26
PROVIDERS: ADMIT Internal Medicine; ATTEND Internal Medicine
DX: R55 Syncope and collapse (principal); E86.0 Dehydration; I10 Essential (primary) hypertension; E78.5 Hyperlipidemia, unspecified; K52.9 Noninfective gastroenteritis and colitis, unspecified; A04.72 Enterocolitis due to Clostridium difficile, not specified as recurrent; I48.0 Paroxysmal atrial fibrillation; I44.7 Left bundle-branch block, unspecified; E78.00 Pure hypercholesterolemia, unspecified; E03.9 Hypothyroidism, unspecified; F03.90 Unspecified dementia, unspecified severity, without behavioral disturbance, psychotic disturbance, mood disturbance, and anxiety; G40.909 Epilepsy, unspecified, not intractable, without status epilepticus; E66.9 Obesity, unspecified; Z68.32 Body mass index [BMI] 32.0-32.9, adult; Z90.710 Acquired absence of both cervix and uterus; Z90.89 Acquired absence of other organs; Z98.890 Other specified postprocedural states; Z86.73 Personal history of transient ischemic attack (TIA), and cerebral infarction without residual deficits; Z86.011 Personal history of benign neoplasm of the brain; Z66 Do not resuscitate
CPT/HCPCS: 71010; 80048; 80061; 81003; 82550; 82553; 83605; 83735; 84484 ×2; 85025; 90732; 93005; 93306; 93880; 96361 ×3; 96365; 96366; 96367; 96372; 99285; G0008; G0009; G0378; Q2036; 36415; 80053; 81015; 84443; 90471; 90682; 93010; 96360; J1650; J3475; J3480; J7050

== ENCOUNTER 2017-08-17 01:26 | Outpatient (CLI) | payer MEDICARE, BC ==
[2017-08-17] MEDS ORDERED: Gadobenate Dimeglumine 529 MG/1 ML (20ML VIAL) ONE (09:00)
--- NOTE | 2017-08-17 16:35 | MRI ---
BRAIN MRI WITH AND WITHOUT CONTRAST 08/17/17 COMPARISON: 05/04/17 and prior. HISTORY: History of meningioma, status post resection. TECHNIQUE: Multiplanar and multisequence MR imaging of the brain is provided with and without contrast. FINDINGS: The diffusion weighted imaging demonstrates no evidence for acute infarction. There are areas of encephalomalacia involving the posteromedial left occipital lobe and the anterolat eral aspect of the left frontal lobe, stable. In both of these areas there is linear cortically based blooming artifact, suggesting prior hemorrhage and/or calcification. The abnormality within the left occipital lobe is likely on the basis of an old hemorrhagic infarction, while the abnormality in the left frontal lobe is on the basis of postoperative change status post meningioma resection. Stable l eft craniotomy change noted. There is multifocal periventricular deep and subcortical white matter hypodensity, evidence of stable small vessel disease. Patchy areas of increased FLAIR signal within the yvette is also likely on the b asis of small vessel ischemic disease. Arterial flow voids at the axial level of the skull base demonstrate a hypoplastic right vertebral ar judith. Imaged paranasal sinuses/mastoid air cells appear grossly unremarkable. The postcontrast imaging demonstrates linear dural enhancement in the left frontal region, likely ass ociated with prior tumor resection. In addition, there is a linear areas of enhancement in the postop erative bed, best seen on axial image 18 of the thick section postcontrast imaging and image 127 of t he thin section axial postcontrast imaging, likely on the basis of postoperative scar and/or vascular enhancement. These findings are unchanged when compared to the 05/04/17 exam. No additional areas of e nhancement are identified. IMPRESSION: Stable brain MRI when compared to the 05/04/17 exam. Postoperative changes in the left frontal lobe wit h curvilinear residual enhancement in the postsurgical bed. This likely represents either scar or vas cular enhancement. However, in order to exclude minimal residual tumor, followup imaging is advised. POS: HERBIE
== END 2017-08-17 01:27 | disposition home or self-care (01) ==
LOC: SCSMRI 01:26
PROVIDERS: ATTEND Surgery
DX: D33.2 Benign neoplasm of brain, unspecified (principal); Z98.890 Other specified postprocedural states
CPT/HCPCS: 70553; A9579

== ENCOUNTER 2017-12-21 22:19 | Observation (INO) | payer MEDICARE, BC ==
[2017-12-21 22:41] LABS: Bilirubin Negative (Negative); Blood, Urine Negative (Negative); Clarity CLEAR (Clear); Glucose, Urine (Dipstick) Negative (Negative); Leukocyte Small (Negative); Nitrite Negative (Negative); Protein, Urine (Dipstick) Negative (Neg-Trace); Specific Gravity, Urine 1.007 (1.002-1.036); Urobilinogen 0.2 mg/dL (0.2-1.0); pH, Urine 6.5 (5.0-9.0)
[2017-12-21 22:43] LABS: Bacteria/HPF None Seen HPF (None Seen); Hyaline Casts/LPF 0-3 HYALINE CAST LPF (0-3 Hyaline); Pathc Cast-AUWi Flag 0.14 (0-2.49); RBC/HPF 0-3 HPF (0-3); Squamous Epithelial 0-3 HPF (0-3); WBC/HPF 0-3 HPF (0-3)
[2017-12-21 23:06] LABS: #Basophils 0.1 thou/uL (0.0-0.2); #Eosinphils 0.3 thou/uL (0.0-0.7); #Lymphocytes 1.6 thou/uL (1.20-3.40); #Monocytes 0.7 thou/uL (0.11-0.59); #Neutrophils 4.5 thou/uL (1.40-6.50); %Basophils 0.8 % (0.0-1.0); %Eosinophils 3.7 % (0.0-10.0); %Monocytes 9.7 % (0.0-10.0); %Neutrophils 63.8 % (42.0-75.0); Hemoglobin 12.9 g/dL (12.0-16.0); Mean Corpuscular HGB CONC 33.7 g/dL (32.0-36.0); Mean Corpuscular Hemoglobin 32.4 pg (27.0-31.0); Mean Platelet Volume 10.7 fL (7.4-10.4); Platelet Count 149 thou/uL (130-400); RBC Distribution Width 12.2 % (11.5-14.5); Red Blood Cell (RBC) Count 3.98 mill/uL (4.20-5.40)
[2017-12-21 23:12] LABS: ALT (SGPT) 22 U/L (8-55); AST (SGOT) 32 U/L (5-34); Albumin 3.9 g/dL (3.4-4.8); Alkaline Phosphatase 109 U/L (40-150); Anion Gap 12 mmol/L (10-20); BUN (Urea Nitrogen) 30 mg/dL (9.8-20.1); Bilirubin, Total 0.4 mg/dL (0.2-1.2); Calc. Creatinine Clearance 0 mL/min (70-130); Carbon Dioxide 27 mmol/L (23-31); Chloride 102 mmol/L (98-107); Estimated GFR-MDRD 45; Globulin 2.6 g/dL (2.4-3.5); Glucose 84 mg/dL (83-110); Potassium 3.5 mmol/L (3.5-5.1); Protein, Total 6.5 g/dL (6.0-8.3); Sodium 137 mmol/L (136-145)
[2017-12-22 00:12] LABS: INR-International Normal Ratio 1.1; PTT 32.7 SEC (22.9-36.1); Prothrombin Time 14.3 SEC (12.0-14.7)
[2017-12-22 00:24] LABS: Troponin I 0.017 ng/mL (< 0.028)
[2017-12-22 00:28] LABS: CKMB 25.8 ng/mL (0-6.6)
[2017-12-22] MEDS ORDERED: Acetaminophen 325 MG TAB PO PRN (02:58)
[2017-12-22] MEDS ORDERED: Ondansetron HCl/PF 4 MG/2 ML Vial IVP PRN (02:58)
[2017-12-22] MEDS ORDERED: Sodium Chloride 0.9% 1,000 ML IV SCH ×3 (02:58→08:02)
[2017-12-22] MEDS ORDERED: Ondansetron ODT 4 MG TAB SL PRN (02:58)
[2017-12-22 03:31] VITALS: BMI 32.9
--- NOTE | 2017-12-22 08:00 | CT ---
PRELIMINARY REPORT/[facility]/EMERGENCY AFTER HOURS PROCEDURE: EXAM: CT Head Without Intravenous Contrast CLINICAL HISTORY: 87 years old, female; Signs and symptoms; Speech disturbance; Slurred speech; Patient HX: Reports slu rred speach that resolved quickly around lunch time. TECHNIQUE: Axial computed tomography images of the head/brain without intravenous contrast. All CT scans at this facility use one or more dose reduction techniques, viz.: automated exposure control; ma/kV adjustme nt per patient size (including targeted exams where dose is matched to indication; i.e. head); or ite rative reconstruction technique. COMPARISON: No relevant prior studies available. FINDINGS: Brain: No intracranial hemorrhage. No CT evidence of acute ischemia. LEFT frontal, parietal and occip ital encephalomalacia change possibly from prior ischemia. Old LEFT basal ganglia infarct Ventricles: No ventriculomegaly. The subarachnoid cisterns and extar-axial CSF spaces are unremarkabl e. Bones/joints: LEFT frontal craniotomy Soft tissues: Unremarkable. Sinuses: No acute sinusitis. Mastoid air cells: No mastoid effusion. IMPRESSION: No acute intracranial pathology. Thank you for allowing us to participate in the care of your patient. Dictated and Authenticated by: Ranjeet Cedeño MD 12/22/2017 12:51 AM Central Time ([place] & [place]) FINAL REPORT EMERGENCY AFTER HOURS CT HEAD WITHOUT IV CONTRAST: Date: 12/22/17 HISTORY: Slurred speech that has now resolved. COMPARISON: 07/01/17. IMPRESSION: 1. No acute intracranial abnormality is demonstrated. 2. Stable areas of encephalomalacia in the left parietal, occipital, and frontal lobes, likely relat ed to remote areas of infarction. There are stable low density areas seen in each basal ganglia, like ly related to remote lacunar infarctions. 3. Mild cerebral volume loss. 4. CT head is overall stable when compared to the prior study, including prior left frontal parietal craniotomy defect. Findings are in agreement with the preliminary report by Aditya. POS: HERBIE
[2017-12-22] MEDS ORDERED: Famotidine 20 MG TAB PO SCH ×2 (09:00→21:00)
[2017-12-22] MEDS: levETIRAcetam 500 MG TAB PO SCH ×2 (09:18→21:04)
[2017-12-22] MEDS: Enoxaparin Sodium 40 MG/0.4 ML SYRINGE SC SCH (09:20)
--- NOTE | 2017-12-22 09:53 | HP ---
DATE OF ADMISSION: 12/22/2017 CHIEF COMPLAINT: Short episode of inability to speak yesterday which resolved at this point. HISTORY OF PRESENT ILLNESS: The patient is an 87-year-old female who is living at the [facility]. Last night while getting ready for the dinner, she had a short episode lasting less than 3 0 minutes of inability to speak. She is aware of that. She was brought to the emergency room for fu rther evaluation. She said that she felt funny for the rest of the day after this resolved. Also, s he had some mild headache. The patient has a history 2 CVAs in the past, denied any weakness or ting ling in the extremities. She did not have any fever or chills. PAST MEDICAL HISTORY: 1. Hypertension. 2. History of meningioma status post resection in 2017. 3. History of seizure disorder. 4. Dementia. 5. History of cerebrovascular accident. 6. History of chronic atrial fibrillation with a normal sinus rhythm, a might sabrina at this point. 7. Hypothyroidism. 8. History of subdural hematoma. 9. History of UTIs. PAST SURGICAL HISTORY: 1. Thyroidectomy. 2. Tonsillectomy. 3. Hysterectomy. 4. Craniotomy and tumor resection for grade II atypical meningioma. ALLERGIES: None. SOCIAL HISTORY: She lives at [facility]. Her daughter is her surrogate decision maker. Her prima ry care physician is Dr. Parekh. She does not smoke. She does not use any alcohol, not any illicit dr fried. CODE STATUS: The patient is full no code. The decision was made after I had discussion with her. S he is alert and oriented time understands the meaning of this decision. FAMILY HISTORY: Positive for lung cancer. CURRENT MEDICATIONS: Aspirin 81 mg once a day, Namenda 5 mg twice a day, levothyroxine 125 mcg once a day, PreserVision 2 tablets once a day, Bystolic 10 mg twice a day, atorvastatin 20 mg daily, queti apine 25 mg daily, Keppra 250 mg twice a day, Epinastine 0.05% ophthalmic drops 1 drop to each eye tw ice a day. REVIEW OF SYSTEMS: CONSTITUTIONAL: Negative for weight loss, any fever or chills. EYES: Positive for visual field loss which is chronic in both eyes in the center. CARDIOVASCULAR: Negative for chest pain, palpitation. RESPIRATORY: Negative for shortness of breath and cough. GASTROINTESTINAL: Positive for some abdominal discomfort on and off. GENITOURINARY: Positive for dysuria. SKIN: Negative for rash or erythema. NEUROLOGIC: Positive for above-mentioned inability to speak, lasting less than 30 minutes. Negati ve for anxiety and depression. MUSCULOSKELETAL: Negative for pain and swelling. PHYSICAL EXAMINATION: VITAL SIGNS: Blood pressure is 167/74, pulse is 45, respiratory rate is 18, O2 saturation is 97 on r oom air, temperature is 98.0. HEENT: Head is atraumatic, normocephalic. She is able to answer my questions properly. Eyes are PE RRLA. Visual mariee showed significant visual loss which is to the right in the center both eyes. O ral mucosa is dry. NECK: Supple, no lymphadenopathy. Thyroid is not palpable. LUNGS: A few crackles at the left base. No wheezing, no rales. HEART: S1, S2, bradycardic. No S3, no S4. ABDOMEN: Soft, nontender, nondistended. Bowel sounds are present, no organomegaly. EXTREMITIES: 1+ peripheral edema similar bilaterally. NEUROLOGIC: She is alert and oriented x4. There is not any sensorimotor deficit present. Cranial n erves are intact. Visual mariee as mentioned above. Extraocular movements within normal limits. Ce rebral function within normal limits. LABORATORY: Showed white count of 7.0, hemoglobin 12.9, hematocrit 38.2, platelet count is 149. Jaquelin bryan showed normal electrolytes, BUN of 30, creatinine 1.14. The rest of chemistry within normal l imits except for creatinine kinase which was 537. CK-MB 25.8 with a normal troponin I. Urinalysis s howed small amount of leukocyte esterase. CK-MB was 25.8, creatinine kinase was 537. Troponin 0.017 . EKG was done and it showed sinus bradycardia with ventricular rate of 50 beats per minute with atilio e left bundle branch block. ASSESSMENT AND PLAN: 1. Short episode of aphasia, rule out additional cerebrovascular accident, but the patient is quite dry and this could be related to the above-mentioned symptoms. 2. Bradycardia. We will hold her Bystolic. She is on high dose of Bystolic twice a day dose. We w ill start her later with a smaller dose. 3. Elevated creatinine to 1.14 and BUN to 30, suggestive of some dehydration. We will keep her on 1 00 mL of normal saline per hour, trying to rehydrate her. 4. Elevated creatinine kinase and CK-MB with normal troponins, most likely related to some small rha bdo secondary to dehydration. She did not have any fall as far as I know recently. 5. History of meningioma status post resection 2016. 6. History of previous cerebrovascular accidents. 7. History of seizure disorder. 8. History of chronic atrial fibrillation, currently in sinus bradycardia. 9. Hypothyroidism. 10. History of subdural hematoma. 11. History of urinary tract infections. PLAN: The plan is to keep her for observation. Condition is fair. Activity: Bed rest and bathroom privileges with assistance. IV normal saline 100 mL per hour. Check CK and CK-MB and troponin x2 e very 4 hours, hold her beta jacinto for now until her bradycardia recovers and restart her on a small er dose later. Continue IV fluids. MRI of the brain to rule out CVA. Aspirin 81 mg once a day. Sh e will have first dose this morning. Keppra 250 mg twice a day for her history of seizures. She esperanza l be on deep venous thrombosis prophylaxis with SCDs and 40 mg of subcutaneous Lovenox q.24h. and she is full no code and she should be able to go back to the halfway, most likely tomorrow after sh e is rehydrated and CVA is ruled out and bradycardia is resolved.
[2017-12-22 09:56] LABS: Troponin I 0.017 ng/mL (< 0.028)
[2017-12-22 10:01] LABS: CKMB 21.5 ng/mL (0-6.6)
--- NOTE | 2017-12-22 11:43 | MRI ---
MRI BRAIN: HISTORY: Slurred speech. TECHNIQUE: Noncontrast enhanced MR images of the brain are obtained. FINDINGS: MR images of the brain demonstrate an old area of stroke with encephalomalacic and gliotic changes se en in the left parietal and occipital lobes, compatible with old areas of stroke and gliosis. There has been a previous left frontal craniotomy. Some left frontal lobe gliotic and encephalomalac ic change is seen, likely post surgical. No acute evidence of intracranial abnormality is seen. Normal flow voids seen in the major intracran ial vessels. IMPRESSION: Old left parietal and occipital strokes with left frontal encephalomalacic and gliotic changes seen, possibly post surgical or compressive, with subsequent surgical decompression. No other acute abnorm alities seen. POS: HERBIE
[2017-12-22 15:11] LABS: CKMB 17.9 ng/mL (0-6.6); Critical Call CKMBM RESULT DECREASING
[2017-12-22] MEDS: Sodium Chloride 0.9% 1,000 ML IV SCH (16:51)
[2017-12-22] MEDS ORDERED: Metoprolol Tartrate 5 MG/5 ML VIAL IVP SCH (23:45)
[2017-12-23] MEDS: Sodium Chloride 0.9% 1,000 ML IV SCH ×2 (03:33→13:02)
[2017-12-23] MEDS ORDERED: Acetaminophen 325 MG TAB PO PRN (04:18)
[2017-12-23] MEDS ORDERED: HYDROcodone/Acetaminophen 5/325 mg Tablet PO PRN (08:13)
[2017-12-23] MEDS ORDERED: hydrALAZINE 20 MG/ML VIAL SLOW IVP PRN (08:13)
[2017-12-23] MEDS ORDERED: Diabetic Tussin 200 MG/10 ML UDCUP PO PRN (08:13)
[2017-12-23] MEDS ORDERED: Senokot 8.6 MG TAB PO PRN (08:13)
[2017-12-23] MEDS ORDERED: Chloraseptic Spray 180 ml Bottle PO PRN (08:13)
[2017-12-23] MEDS ORDERED: Sodium Chloride 0.65% Nasal 44 ML BOT EA NARE PRN (08:13)
[2017-12-23] MEDS ORDERED: Artificial Tears 18 DROP/0.9 ML EA EYE PRN (08:13)
[2017-12-23] MEDS ORDERED: Temazepam 15 MG CAP PO PRN (08:13)
[2017-12-23] MEDS ORDERED: Eucerin (Mineral Oil/Petrolatum,White) 30 gm Jar TOP PRN (08:13)
[2017-12-23] MEDS ORDERED: Mag-Al 1200 mg/1200 mg/30 ML UDCUP PO PRN (08:13)
[2017-12-23] MEDS ORDERED: Loperamide HCl 2 MG CAP PO PRN (08:13)
[2017-12-23] MEDS ORDERED: Milk Of Magnesia 30 ML UDCUP PO PRN (08:13)
[2017-12-23] MEDS ORDERED: Ondansetron ODT 4 MG TAB PO PRN (08:13)
[2017-12-23] MEDS ORDERED: Ondansetron HCl/PF 4 MG/2 ML Vial IVP PRN (08:13)
[2017-12-23] MEDS: levETIRAcetam 500 MG TAB PO SCH (08:33)
[2017-12-23] MEDS: Enoxaparin Sodium 40 MG/0.4 ML SYRINGE SC SCH (08:33)
[2017-12-23] MEDS ORDERED: Losartan/Hydrochlorothiazide 100 mg/25 mg Tablet PO SCH ×2 (09:00)
[2017-12-23] MEDS ORDERED: COPPER PO SCH (09:00)
[2017-12-23] MEDS ORDERED: Atorvastatin Calcium 20 MG TAB PO SCH (09:00)
[2017-12-23] MEDS ORDERED: ZINC PO SCH (09:00)
[2017-12-23] MEDS ORDERED: EPINASTINE HCL EA EYE SCH (09:00)
[2017-12-23] MEDS ORDERED: Levothyroxine Sodium 125 MCG TAB PO SCH (09:00)
[2017-12-23] MEDS ORDERED: VIT C PO SCH (09:00)
[2017-12-23] MEDS ORDERED: VIT A PO SCH (09:00)
[2017-12-23] MEDS ORDERED: Vit A,C & E/Lutein/Minerals Tablet PO SCH (09:00)
[2017-12-23] MEDS ORDERED: VIT E PO SCH (09:00)
--- NOTE | 2017-12-23 12:09 | PDOC.PN ---
- Subjective Encounter Start Date: 12/23/17 Encounter Start Time: 08:00 Patient seen and examined. No new complaints. No overnight events - Objective Resuscitation Status: Resuscitation Status DNR:Do Not Resuscitate MAR Reviewed: Yes Vital Signs & Weight: Vital Signs (12 hours) Temp Pulse Resp BP Pulse Ox 12/23/17 11:40 98.6 F 105 H 16 129/79 94 L 12/23/17 08:00 98.5 F 126 H 16 12/23/17 07:55 98.5 F 126 H 16 125/70 94 L 12/23/17 03:45 98.2 F 125 H 20 168/90 H 97 Weight Weight 181 lb 6.4 oz I&O: 12/22/17 12/23/17 12/24/17 06:59 06:59 06:59 Intake Total 4972 Output Total 300 810 Balance -300 4162 Result Diagrams: 12/21/17 22:42 12/21/17 22:42 Radiology Reviewed by me: Yes EKG Reviewed by me: Yes Phys Exam - Physical Examination Constitutional: NAD HEENT: PERRLA, moist MMs, sclera anicteric Neck: no JVD, supple Respiratory: no wheezing, no rales, no rhonchi Cardiovascular: RRR, no significant murmur, no rub Gastrointestinal: soft, non-tender, no distention, positive bowel sounds Musculoskeletal: no edema, pulses present Neurological: non-focal, normal sensation, moves all 4 limbs Psychiatric: normal affect, A&O x 3 Skin: no rash, normal turgor Dx/Plan (1) TIA (transient ischemic attack) Status: Acute (2) Dementia Code(s): F03.90 - UNSPECIFIED DEMENTIA WITHOUT BEHAVIORAL DISTURBANCE Status: Chronic Qualifiers: (3) Meningioma Code(s): D32.9 - BENIGN NEOPLASM OF MENINGES, UNSPECIFIED Status: Chronic Comment: with pressure on left frontal lobe and midline shift, s/p resection (4) Obesity (BMI 30.0-34.9) Code(s): E66.9 - OBESITY, UNSPECIFIED Status: Chronic (5) Old cerebrovascular accident (CVA) without late effect Code(s): Z86.73 - PRSNL HX OF TIA (TIA), AND CEREB INFRC W/O RESID DEFICITS Status: Chronic (6) Seizure disorder Code(s): G40.909 - EPILEPSY, UNSP, NOT INTRACTABLE, WITHOUT STATUS EPILEPTICUS Status: Chronic - Plan cont current plan of care * medication reviewed as below * symptomatic treatment * stable for discharge. Review of Systems - Review of Systems ENT: negative: Ear Pain, Ear Discharge, Nose Pain, Nose Discharge, Nose Congestion, Mouth Pain, Mouth Swelling, Throat Pain, Throat Swelling, Other Respiratory: negative: Cough, Dry, Shortness of Breath, Hemoptysis, SOB with Excertion, Pleuritic Pain, Sputum, Wheezing Cardiovascular: negative: chest pain, palpitations, orthopnea, paroxysmal nocturnal dyspnea, edema, light headedness, other Gastrointestinal: negative: Nausea, Vomiting, Abdominal Pain, Diarrhea, Constipation, Melena, Hematochezia, Other Genitourinary: negative: Dysuria, Frequency, Incontinence, Hematuria, Retention , Other Musculoskeletal: negative: Neck Pain, Shoulder Pain, Arm Pain, Back Pain, Hand Pain, Leg Pain, Foot Pain, Other Skin: negative: Rash, Lesions, [place], Bruising, Other - Medications/Allergies Allergies/Adverse Reactions: Allergies Allergy/AdvReac Type Severity Reaction Status Date / Time No Known Drug Allergies Allergy Verified 12/22/17 03:06 Medications: Current Medications Acetaminophen (Tylenol) 650 mg PO Q6H PRN PRN Reason: Headache/Fever or Pain Last Admin: 12/23/17 04:52 Dose: 650 mg Hydrocodone Bitart/Acetaminophen ([place] 5/325) 1 tab PO Q4H PRN PRN Reason: Moderate Pain (4-6) Al Hydroxide/Mg Hydroxide (Maalox) 15 ml PO Q4H PRN PRN Reason: Heartburn or Indigestion Artificial Tears (Tears Naturale) 0 drop EA EYE PRN PRN PRN Reason: Dry Eyes Aspirin (Aspirin Chewable) 81 mg PO DAILY [facility] Last Admin: 12/23/17 08:33 Dose: 81 mg Aspirin (Aspirin Chewable) 81 mg PO DAILY [facility] Last Admin: 12/23/17 09:00 Dose: Not Given Atorvastatin Calcium (Lipitor) 20 mg PO DAILY [facility] Last Admin: 12/23/17 09:14 Dose: 20 mg Enoxaparin Sodium (Lovenox) 40 mg SC 0900 [facility] Last Admin: 12/23/17 08:33 Dose: 40 mg Famotidine (Pepcid) 20 mg PO 2100 [facility] Last Admin: 12/22/17 21:06 Dose: 20 mg Guaifenesin (Robitussin Sf) 200 mg PO Q4H PRN PRN Reason: Cough HCTZ/Losartan Potassium (Hyzaar 100/25) 1 tab PO DAILY [facility] Last Admin: 12/23/17 09:14 Dose: 1 tab Hydralazine HCl (Apresoline) 10 mg SLOW IVP Q4H PRN PRN Reason: Systolic BP > 180 Sodium Chloride (Normal Saline 0.9%) 1,000 mls @ 100 mls/hr IV .Q10H [facility] Last Admin: 12/23/17 03:33 Dose: 1,000 mls Levetiracetam (Keppra) 250 mg PO BID [facility] Last Admin: 12/23/17 08:33 Dose: 250 mg Levothyroxine Sodium (Synthroid) 125 mcg PO DAILY [facility] Last Admin: 12/23/17 09:14 Dose: 125 mcg Loperamide HCl (Imodium) 2 mg PO PRN PRN PRN Reason: Diarrhea/Loose Stools Magnesium Hydroxide (Milk Of Magnesium) 30 ml PO DAILYPRN PRN PRN Reason: Constipation Memantine (Namenda) 5 mg PO BID [facility] Last Admin: 12/23/17 09:14 Dose: 5 mg Mineral Oil/White Petrolatum (Eucerin Cream) 0 gm TOP BIDPRN PRN PRN Reason: Dry Skin Multivitamins/Minerals (Ocuvite With Lutein) 1 tab PO DAILY [facility] Last Admin: 12/23/17 09:14 Dose: 1 tab Ondansetron HCl (Zofran Odt) 4 mg PO Q6H PRN PRN Reason: Nausea/Vomiting Ondansetron HCl (Zofran) 4 mg IVP Q6H PRN PRN Reason: Nausea/Vomiting [Epinastine Hcl 0.05 (% Ophth Soln] 1 Drop) 0 each EA EYE BID [facility] Phenol (Chloraseptic [place] 180 Ml Bot) 0 ml PO PRN PRN PRN Reason: Sore Throat Quetiapine Fumarate (Seroquel) 25 mg PO DAILY [facility] Last Admin: 12/23/17 09:14 Dose: 25 mg Senna (Senokot) 2 tab PO HSPRN PRN PRN Reason: Constipation Sodium Chloride (Flush - Normal Saline) 10 ml IVF Q12HR [facility] Last Admin: 12/23/17 08:33 Dose: Not Given Sodium Chloride (Flush - Normal Saline) 10 ml IVF PRN PRN PRN Reason: Saline Flush Sodium Chloride ([place] Nasal [place] 0.65%) 0 ml EA NARE QIDPRN PRN PRN Reason: Nasal Congestion Temazepam (Restoril) 15 mg PO HSPRN PRN PRN Reason: Insomnia
--- NOTE | 2017-12-23 13:26 | DIS ---
PRIMARY CARE PHYSICIAN: Dr. Feliz Parekh. DATE OF ADMISSION: 12/22/2017 DATE OF DISCHARGE: 12/23/2017 DISCHARGE DISPOSITION: Home. PRIMARY DISCHARGE DIAGNOSIS: Transient ischemic attack, resolved. SECONDARY DISCHARGE DIAGNOSES: Seizure disorder, history of cerebrovascular accident, obesity with B PR 31, meningioma, dementia. PRIMARY PROCEDURE/OPERATION: None. RADIOLOGICAL INVESTIGATION: CT brain did not show any acute process. MRI brain did not show any acu te process. SIGNIFICANT LABORATORY DATA: Hemoglobin 12.9, INR 1.1, creatinine 1.14. CK 537. LFT normal. Urina lysis: Leukocyte esterase small. Urine culture negative. DISCHARGE MEDICATIONS: Aspirin 81 mg p.o. daily, Lipitor 20 mg p.o. daily, epinastine one drop each eye b.i.d., Keppra 250 mg p.o. b.i.d., Synthroid 125 mcg p.o. daily, losartan with hydrochlorothiazid e 1 tablet p.o. daily, Namenda 5 mg p.o. b.i.d., Bystolic 10 mg p.o. b.i.d., Seroquel 25 mg p.o. at b edtime, multivitamin 1 tablet p.o. b.i.d. CONTRAINDICATIONS: None. CODE STATUS: DNR. INPATIENT CONSULTANTS: None. ALLERGIES: No known drug allergy. DISCHARGE PLAN: Post hospital, the patient is discharged back to assisted living facility. HOSPITAL COURSE: An 87-year-old female who had admission by Dr. Reyna, please see his H&P for further detail. She came to the ER for acute onset of inability to speak, which was resolved when e came to the emergency room. Initially, CT brain was negative. [facility]. We did MRI brain and confirmed that there was no new acute CVA. The patient did not have any further neurological deficit. The patient remained stable on the stroke floor. Her te lemetry remained unremarkable. The patient was seen and examined at bedside today. Please see my pr ogress note from today for further detail. She will continue all her previous medications. The du ent had elevated CK-MB which was related with elevated total CK and this patient is advised to contin ue statin therapy at this point, but if she has any muscle pain, then the patient is instructed to fo llow up with primary care physician to hold on statin therapy and repeat CK testing. Please see my progress note from today for further detail.
[2017-12-23 15:34] VITALS: BP 173/77; TEMP 98.3
== END 2017-12-23 16:11 ==
LOC: ERS 22:19 → 2NO 12-22 02:50
PROVIDERS: ADMIT Internal Medicine Infectious Disease; ATTEND Internal Medicine Infectious Disease
DX: G45.9 Transient cerebral ischemic attack, unspecified (principal); G40.909 Epilepsy, unspecified, not intractable, without status epilepticus; F03.90 Unspecified dementia, unspecified severity, without behavioral disturbance, psychotic disturbance, mood disturbance, and anxiety; I48.2 Chronic atrial fibrillation; E03.9 Hypothyroidism, unspecified; R74.8 Abnormal levels of other serum enzymes; E66.9 Obesity, unspecified; Z68.31 Body mass index [BMI] 31.0-31.9, adult; Z86.011 Personal history of benign neoplasm of the brain; Z86.73 Personal history of transient ischemic attack (TIA), and cerebral infarction without residual deficits; Z79.82 Long term (current) use of aspirin; Z79.899 Other long term (current) drug therapy; Z98.890 Other specified postprocedural states; Z66 Do not resuscitate
CPT/HCPCS: 70450; 70551; 80053; 82550; 82553 ×3; 84484 ×3; 85025; 85610; 85730; 87086; 93005; 94760; 96360; 96361 ×3; 96372 ×2; 96374; 99285; G0378; 36415; 81003; 81015; A4216; J1650

== ENCOUNTER 2017-12-29 16:00 | Inpatient (IN) | payer MEDICARE, BC ==
[~2017-12-29 16:00] MED LIST: ISOVUE-370 76%-LOCM 1 ML ONE
--- NOTE | 2017-12-29 16:30 | CT ---
HEAD CT NONCONTRAST: 12/29/17 COMPARISON: 12/22/17. INDICATIONS: Stroke. FINDINGS: Redemonstration of multifocal encephalomalacia of the left cerebral hemisphere. There is mild chronic microvascular ischemic disease, as well. Ex vacuo dilatation of ventricular system is present. No in tracranial hemorrhage or mass effect evident. There are lacunar infarctions of the bilateral cerebell ar hemispheres. IMPRESSION: Evidence of multifocal encephalomalacia superimposed upon chronic ischemic disease. No intracranial h emorrhage or mass effect. Telephone placed to ER physician caring for the patient at the time of dictation, 1608 hours, 12/29/17 . Code CR POS: [facility]
[2017-12-29 16:49] LABS: Hemoglobin 12.9 g/dL (12.0-16.0); Mean Corpuscular HGB CONC 33.3 g/dL (32.0-36.0); Mean Corpuscular Hemoglobin 32.6 pg (27.0-31.0); Mean Corpuscular Volume 97.9 fl (81.0-99.0); RBC Distribution Width 12.6 % (11.5-14.5); Red Blood Cell (RBC) Count 3.95 mill/uL (4.20-5.40); White Blood Cell (WBC) Count 7.6 thou/uL (4.8-10.8)
[2017-12-29 16:55] LABS: INR-International Normal Ratio 1.1; PTT 32.2 SEC (22.9-36.1); Prothrombin Time 14.5 SEC (12.0-14.7)
[2017-12-29 17:00] LABS: #Basophils 0.1 thou/uL (0.0-0.2); #Eosinphils 0.2 thou/uL (0.0-0.7); #Lymphocytes 1.1 thou/uL (1.20-3.40); #Monocytes 0.5 thou/uL (0.11-0.59); #Neutrophils 5.2 thou/uL (1.40-6.50); %Basophils 1.4 % (0.0-1.0); %Eosinophils 2.6 % (0.0-10.0); %Lymphocytes 15.5 % (21.0-51.0); %Monocytes 6.9 % (0.0-10.0); %Neutrophils 73.6 % (42.0-75.0); Mean Platelet Volume 6.9 fL (7.4-10.4); Platelet Count 152 thou/uL (130-400)
[2017-12-29 17:03] LABS: ALT (SGPT) 24 U/L (8-55); AST (SGOT) 25 U/L (5-34); Albumin 3.6 g/dL (3.4-4.8); Alkaline Phosphatase 106 U/L (40-150); Anion Gap 13 mmol/L (10-20); BUN (Urea Nitrogen) 34 mg/dL (9.8-20.1); Bilirubin, Total 0.3 mg/dL (0.2-1.2); Calc. Creatinine Clearance 0 mL/min (70-130); Calcium 8.4 mg/dL (7.8-10.44); Carbon Dioxide 19 mmol/L (23-31); Chloride 104 mmol/L (98-107); Estimated GFR-MDRD 52; Globulin 2.3 g/dL (2.4-3.5); Glucose 102 mg/dL (83-110); Potassium 3.5 mmol/L (3.5-5.1); Protein, Total 5.9 g/dL (6.0-8.3); Sodium 132 mmol/L (136-145)
[2017-12-29 17:06] LABS: PLT Morphology Comment Appears Adequate
[2017-12-29 17:06] LABS: Troponin I 0.012 ng/mL (< 0.028)
[2017-12-29 17:09] LABS: CKMB 16.1 ng/mL (0-6.6)
--- NOTE | 2017-12-29 17:22 | RAD ---
PORTABLE UPRIGHT FRONTAL CHEST RADIOGRAPH 12/29/17 COMPARISON: 07/10/17 HISTORY: Stroke symptoms. FINDINGS: There is mild pulmonary vascular congestion and mild nonspecific diffuse interstitial prominence. The re is atherosclerotic calcification of the aortic arch. There is no pneumothorax, pleural fluid, foca l consolidation, or alveolar edema. IMPRESSION: No acute findings. POS: [facility]
[2017-12-29 18:02] LABS: Bilirubin Negative (Negative); Blood, Urine Negative (Negative); Clarity CLEAR (Clear); Glucose, Urine (Dipstick) Negative (Negative); Leukocyte Small (Negative); Nitrite Negative (Negative); Protein, Urine (Dipstick) Negative (Neg-Trace); Specific Gravity, Urine 1.021 (1.002-1.036); Urobilinogen 0.2 mg/dL (0.2-1.0); pH, Urine 6.5 (5.0-9.0)
[2017-12-29 18:06] LABS: Bacteria/HPF None Seen HPF (None Seen); Hyaline Casts/LPF 0-3 HYALINE CAST LPF (0-3 Hyaline); Pathc Cast-AUWi Flag 0.14 (0-2.49); RBC/HPF None Seen HPF (0-3)
--- NOTE | 2017-12-29 18:13 | CT ---
CT ANGIOGRAM HEAD WITH CONTRAST CT ANGIOGRAM NECK WITH CONTRAST CT PERFUSION 12/29/17 COMPARISON: CT brain same day as well as CT brain 12/22/17, MR of brain 12/22/17. HISTORY: Stroke alert, slurred speech and right sided weakness. TECHNIQUE: CT angiogram of the head and neck performed after the intravenous administration of contrast. 3D rend ering provided. There is also perfusion performed in this exam. FINDINGS: There is abnormal increased mean transit time within the left yvette as well as within the cerebellum a nd both C[employer] DINING ROOM ATTENDANT territories. There is decreased cerebral blood volume and area of old left occipital infa rct, left frontal infarct, and left parietal infarction. There is mild decreased cerebral blood flow within the left yvette as well as both CAMP DINING ROOM ATTENDANT territories. On the CT angiogram portion of the examination, there is thrombus within the basilar tip with minimal flow within the proximal right posterior cerebral artery for a length of 3 mm. The left posterior ce rebral artery is nonvisualized. Occlusion of intradural right vertebral artery. The left vertebral artery is dominant. The bilateral common carotid arteries are patent. Using NASCET criteria, no hemodynamically significant stenosis in the internal carotid arteries. The bilateral anterior cerebral arteries and middle cerebral arteries are patent. IMPRESSION: 1. 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 Overall this thrombus measures approximately 3 mm in length. 2. Dominant left vertebral artery with intradural occlusion likely chronic of the right vertebra l artery. 3. Large penumbra of viable tissue at risk for ischemia within the bilateral CAMP DINING ROOM ATTENDANT territory and l eft yvette as well of the superior cerebellum. Code PIPE Olson notified of the findings via telephone at approximately 4:40 p.m. POS: [facility]
[2017-12-29] MEDS ORDERED: Acetaminophen 650 MG Suppository PR PRN (19:28)
[2017-12-29] MEDS ORDERED: Labetalol HCl 100 MG/20 ML VIAL SLOW IVP PRN (19:32)
[2017-12-29] MEDS ORDERED: Acetaminophen 325 MG Suppository ONE (20:29)
[2017-12-29] MEDS ORDERED: Acetaminophen 650 MG Suppository ONE (20:30)
[2017-12-29] MEDS: Sodium Chloride 0.9% 1,000 ML IV SCH (21:24)
[2017-12-29 21:37] VITALS: BMI 31.1
[2017-12-30 05:30] LABS: Anion Gap 9 mmol/L (10-20); BUN (Urea Nitrogen) 28 mg/dL (9.8-20.1); Calc. Creatinine Clearance 60 mL/min (70-130); Calcium 8.6 mg/dL (7.8-10.44); Carbon Dioxide 26 mmol/L (23-31); Cardiac Risk 3.5 (Less than 4.5); Chloride 108 mmol/L (98-107); Cholesterol 112 mg/dl (< 200 Desired); Estimated GFR-MDRD 60; Glucose 75 mg/dL (83-110); HDL Cholesterol 32 mg/dL (>60 Neg Risk); LDL Cholesterol, Calculated 65 mg/dL; Potassium 3.1 mmol/L (3.5-5.1); Sodium 140 mmol/L (136-145); Triglycerides 77 mg/dL (Less than 150)
[2017-12-30 06:11] LABS: MDiff Complete? YES; PLT Morphology Comment PLT clumps seen-ADEQ; Platelet Clumps MODERATE
[2017-12-30 06:12] LABS: #Basophils 0.1 thou/uL (0.0-0.2); #Eosinphils 0.3 thou/uL (0.0-0.7); #Lymphocytes 1.8 thou/uL (1.20-3.40); #Monocytes 0.6 thou/uL (0.11-0.59); #Neutrophils 3.4 thou/uL (1.40-6.50); %Basophils 1.2 % (0.0-1.0); %Eosinophils 4.9 % (0.0-10.0); %Lymphocytes 28.9 % (21.0-51.0); %Monocytes 9.5 % (0.0-10.0); %Neutrophils 55.4 % (42.0-75.0); Mean Corpuscular HGB CONC 35.8 g/dL (32.0-36.0); Mean Corpuscular Hemoglobin 35.1 pg (27.0-31.0); Mean Corpuscular Volume 98.1 fl (81.0-99.0); Mean Platelet Volume 9.2 fL (7.4-10.4); Platelet Count 151 thou/uL (130-400); RBC Distribution Width 12.5 % (11.5-14.5); Red Blood Cell (RBC) Count 3.69 mill/uL (4.20-5.40); White Blood Cell (WBC) Count 6.1 thou/uL (4.8-10.8)
--- NOTE | 2017-12-30 09:46 | HP ---
CHIEF COMPLAINT: Headache with some changes to speech. HISTORY OF PRESENT ILLNESS: This is an 87-year-old female who was recently hospitalized for possible TIA, who is brought in today by her family for a headache, slurred speech, and decreased mental stat us where she is unable to recall her name or date of . At the time of my evaluation in the emergency department, the patient's mental status appears to be s ignificantly improved when compared to initial description. She is accompanied today by her daughter at bedside. The patient is currently able to tell me that she does have a headache. Denies any vis ion changes and is able to state her name, her date of and her current location. In discussing with the patient's daughter at bedside this is a significant improvement from before. It appears that in the Emergency Department, there was a discussion with Neurosurgery. Patient's julia ging did demonstrate a basilar artery thrombus, but given the patient's significant improvement in me ntal status and her known history of prior hemangioma status post removal, the decision was made for no further t-PA or anticoagulation at this point in time. REVIEW OF SYSTEMS: As per HPI. CONSTITUTIONAL: No recent fevers or chills. No recent significant weight loss over the last 2-3 mon ths. HEENT: Headache as above without vision changes. The patient denies any active dizziness at this po int in time. CARDIOVASCULAR: No chest pressure, no chest pain, no shortness of breath, no left-sided arm numbness or tingling. No episodes of diaphoresis, either now nor earlier in the day. RESPIRATORY: No new shortness of breath, intermittent cough which has been ongoing for over a week, but no sinus congestion, no ear pain. GASTROINTESTINAL: Denies any nausea, vomiting, abdominal pain, recent issues with diarrhea or consti pation. GENITOURINARY: Denies any recent issues dysuria, change in urinary frequency, quantity or odor. MUSCULOSKELETAL: Denies any new myalgias or arthralgias beyond her baseline. The remainder of the review of systems otherwise negative. PAST MEDICAL HISTORY: 1. Meningioma, status post resection in 2017. 2. History of seizure disorder. 3. Dementia. 4. History of CVA including remote lacunar infarcts. 5. History of chronic atrial fibrillation, currently in normal sinus rhythm. 6. Hypertension. 7. Hypothyroidism. 8. History of subdural hematoma. 9. Status post thyroidectomy. 10. Status post tonsillectomy. 11. Status post craniotomy and tumor resection as noted above. 12. Status post hysterectomy. HOME MEDICATIONS: Please see the EMR for full details. Her current list includes the following: Se roquel 25 mg p.o. daily. Nebivolol 10 mg p.o. daily, Memantine 5 mg p.o. b.i.d., losartan/hydrochlo rothiazide 1 tab p.o. daily, levothyroxine 125 mcg p.o. daily, Epinastine 1 drop each eye b.i.d., At orvastatin 20 mg p.o. daily. Aspirin 81 mg p.o. daily and Levetiracetam or Keppra 250 mg p.o. b.i.d. ALLERGIES: No known drug allergies. FAMILY HISTORY: Significant for lung cancer. SOCIAL HISTORY: The patient is accompanied today by her daughter. The patient has poor recall of ev ents from earlier today. Her recall is limited to being oriented x3 at this point in time. Daughter at bedside she endorses as being her medical decision maker and the daughter at bedside indicates th at the patient would wish to be a do not intubate, do not resuscitate at this point in time. No acti ve alcohol, tobacco or illicit drug use otherwise. PHYSICAL EXAMINATION: GENERAL: The patient is awake, oriented x3, conversant, a poor historian as noted above. HEENT: Slightly dry mucous membranes. No posterior oropharyngeal exudate or erythema noted. CARDIOVASCULAR: S1, S2. Pulses 2+ bilateral upper extremities, no pitting pedal edema. No murmurs, rubs or gallops. Soft heart tones. RESPIRATORY: Respiratory reasonable air movement. No wheezes, rales or rhonchi. Clear to auscultat ion bilaterally. ABDOMEN: Soft, positive bowel sounds, soft, nontender to palpation. MUSCULOSKELETAL: She is actually currently able to move all 4 extremities independently, does requir e some assist with self-repositioning in the bed. LABORATORY DATA AND IMAGING: WBC 7.6, hemoglobin 12.9, hematocrit 38.7, platelets 152. PT 14.5, INR 1.1. Sodium 132, potassium 3.5, chloride 104, bicarbonate 19, BUN 34, creatinine 1.02, glucose 102, calcium 8.4, magnesium 2.0, total bilirubin 0.3, AST 25, ALT 24, alkaline phosphatase 106. CK-MB 16 .1, troponin 0.012. Total protein 5.9, albumin 3.6. TSH 2.5691. UA is notable for small leukoester ase, 7-10 WBCs, 7-10 squamous epithelial cells. IMAGING: Including a CTA of the brain, head and neck from 12/21/2017 demonstrates "occlusion of the basilar tip with occlusion extending to the proximal right posterior cerebral artery. Overall, this thrombus measures approximately 3 mm in length. There is poor opacification within the left posterio r cerebral artery which may be chronic due to the patient's old infarction in the left HOSPITAL INSURANCE REPRESENTATIVE territory. Dominant left vertebral artery with intradural occlusion, likely chronic of the right vertebral art isai. Large penumbra of tissue at risk for ischemia within the bilateral HOSPITAL INSURANCE REPRESENTATIVE territory and left yvette as well as well of the superior cerebellum." ASSESSMENT AND PLAN: An 87-year-old female who presented with a chief complaint of altered mental st atus and decreased mentation. 1. Altered mental status with decreased mentation, currently improving. Question if this is related to her basilar arterial thrombus. At this point in time, Neurosurgery is consulted. The patient do es have a complicated neurological history with a known history of prior strokes and meningioma as no rui above. We will continue the patient on her home aspirin without further anticoagulation. Awaiti ng further management recommendations from Neurosurgery. I have discussed this with the patient's da ughter at bedside as well. 2. Hypertension, stable. 3. Hypothyroidism, stable. 4. Urine findings are consistent with a "dirty sample." The patient currently afebrile without leuk ocytosis and appears to be improving. I doubt that this presentation is purely due to a urinary trac t infection at this point in time. If clinically warranted can recheck a urine. 5. History of seizures. Continue the patient on her home Keppra. Admit the patient inpatient to the stroke unit with monitoring. Diet n.p.o. until evaluated by Speec h secondary to decreased mentation. ACTIVITY: Out of bed as tolerated with physical therapy. Deep venous thrombosis prophylaxis. The patient is a DNR/DNI. This was discussed in detail with the patient's daughter at bedside. Thank you for asking me to care for your patient. With questions or concerns, contact me at [facility].
[2017-12-30] MEDS: Sodium Chloride 0.9% 1,000 ML IV SCH ×2 (12:15→21:43)
--- NOTE | 2017-12-30 13:19 | CON ---
DATE OF CONSULTATION: 12/30/2017 REFERRING PHYSICIAN: Reena Kelley MD REASON FOR CONSULTATION: Confusion. HISTORY OF PRESENT ILLNESS: Ms. Rm is a pleasant 87-year-old female who has been concerne d for evaluation of altered mental status. History was obtained from patient's medical chart. Appar ently, the patient has a history of stroke that has resulted in the right hemianopia. She has a hist ory of dementia as well as history of meningioma resection done in [address] Malik. She is on pro phylactic Keppra for seizure since she had a meningioma resection done. Apparently, she was at her a partment facility where she went to the front office and sat down, which she normally does not do, at some point she was drifting to fall asleep. When they tried to wake her up, they noticed that she w as having difficulty with talking and getting her words out, which prompted them to bring her to the [facility]. She was also noted to have left-sided facial droop. She had a CT head do ne on arrival to the emergency room, which showed no acute intracranial abnormality. She had a CT an giogram of the head and neck done, which had shown per radiologist occlusion of the basilar tip with thrombus extending to the proximal right posterior cerebral artery and poor visualization of the left posterior cerebral artery. There was also a dominant left vertebral artery with intradural occlusio n of the right vertebral artery. Per daughter who was present at bedside, she is returning to her no rmal self, although she feels the patient is more confused and does not remember the event that took place on yesterday. PAST MEDICAL HISTORY: Significant for hypertension, hypothyroidism, history of subdural hematoma, hi story of stroke resulting in right hemianopia, history of chronic atrial fibrillation, history of men ingioma status post resection in 2017, and dementia. PAST SURGICAL HISTORY: Significant for meningioma resection in 2017, thyroidectomy, tonsillectomy, c raniotomy, and hysterectomy. CURRENT MEDICATIONS: Please review MAR. ALLERGIES: No known drug allergies. FAMILY HISTORY: Significant for lung cancer. SOCIAL HISTORY: She does not smoke cigarettes, drink alcohol or use illicit drugs. She is currently living in apartment. PHYSICAL EXAMINATION: VITAL SIGNS: Blood pressure 181/72, pulse of 63, temperature of 97.3, respirations of 16, O2 sats 97 % on room air. GENERAL: Well-developed, well-nourished female, in no apparent distress. RESPIRATORY: Clear to auscultation bilaterally. CARDIOVASCULAR: Regular rate and rhythm. NEUROLOGIC: Mental status: The patient is awake, alert, oriented x2. Speech and language: Fluent speech. Cranial nerves: Pupils are 3 mm and reactive. She has a right hemianopia. Face appears sy mmetric. Tongue and uvula are midline. Motor exam showed normal tone and bulk with a 5/5 strength i n both lower extremities. Sensory: Sensation is intact and symmetric. Deep tendon reflexes 2+ refl exes in both lower extremities. Babinski: Plantar responses flexion bilaterally. Coordination inta ct to [id number] and finger tapping bilaterally. LABORATORY DATA: Reviewed, which included CBC, CMP, urinalysis, and coag panel, which is significant for potassium of 3.1, sodium of 132, CK-MB of 16.1, otherwise unremarkable. IMAGING STUDIES: CT head without contrast was reviewed, which showed no acute intracranial abnormali ty. CT angiogram of the head and neck was reviewed, which per Radiology showed a basal artery thromb us at the tip extending into the proximal right posterior cerebral artery. There was also a chronic occlusion of the right vertebral artery. I have reviewed the CT angiogram myself and discussed the c ase with Dr. Cooper. In my opinion, this is likely chronic finding with a basal artery thrombus being a chronic and not in acute. Dr. Cooper agreed with the finding and recommended medical management. IMPRESSION: 1. Altered mental status, likely toxic metabolic encephalopathy versus transient ischemic attack dominick mary hypertensive urgency. 2. 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 4. Dementia. ASSESSMENT AND PLAN: Mr. Rm is a pleasant 87-year-old female who presented with an acute onset of confusion. She had a CT angiogram of the head and neck done, which per Radiology showed a t hrombus in the tip of the basilar artery extending into the right posterior cerebral artery. In my o dheeraj, this is likely chronic stenosis rather than thrombus or occlusion. I have discussed this wit h Dr. Cooper, who felt in the same direction. I have discussed with the daughter and explained the fi ndings of the CT angiogram. I have explained the treatment for this is usually if its thrombus can b e started on anticoagulation; however, given that she has a prior history of stroke and meningioma re section as well as frequent falls, I do not feel she is safe to take anticoagulation therapy. In my opinion, she will be best managed with aggressive antiplatelet therapy, which includes aspirin 81 mg along with Plavix 75 mg daily. The patient's daughter is in agreement and thus we will recommend sta rting her on Plavix 75 mg daily along with aspirin 81 mg daily for secondary stroke prevention. She may be monitored overnight and I have discussed with the daughter that she may be beneficial to be go ing to the assisted living facility rather than going by herself at home where would not be safe to s lloyd independently. There is no further neurologic workup needed from my standpoint.
[2017-12-30] MEDS ORDERED: Non-Formulary Item 1 EACH (Levetiracetam [Keppra] 250 MG) PO SCH (21:00)
[2017-12-30] MEDS: levETIRAcetam 500 mg/5 ml Oral Solution PO SCH (21:15)
[2017-12-30] MEDS: Ketotifen Fumarate 0.025% Ophth Soln 5 ml Bottle EA EYE SCH (21:18)
[2017-12-30] MEDS: Nebivolol HCl 5 MG TAB PO SCH (21:19)
[2017-12-31] MEDS: Levothyroxine Sodium 125 MCG TAB PO SCH (05:21)
[2017-12-31 06:10] LABS: Anion Gap 9 mmol/L (10-20); BUN (Urea Nitrogen) 16 mg/dL (9.8-20.1); Calc. Creatinine Clearance 69 mL/min (70-130); Calcium 8.6 mg/dL (7.8-10.44); Carbon Dioxide 25 mmol/L (23-31); Chloride 108 mmol/L (98-107); Estimated GFR-MDRD 70; Glucose 73 mg/dL (83-110); Potassium 3.2 mmol/L (3.5-5.1); Sodium 139 mmol/L (136-145)
[2017-12-31 06:28] LABS: Hemoglobin 12.8 g/dL (12.0-16.0); Mean Corpuscular HGB CONC 33.6 g/dL (32.0-36.0); Mean Corpuscular Hemoglobin 32.3 pg (27.0-31.0); Mean Corpuscular Volume 96.1 fl (81.0-99.0); RBC Distribution Width 12.5 % (11.5-14.5); Red Blood Cell (RBC) Count 3.95 mill/uL (4.20-5.40); White Blood Cell (WBC) Count 5.2 thou/uL (4.8-10.8)
[2017-12-31 06:29] LABS: #Eosinphils 0.2 thou/uL (0.0-0.7); #Lymphocytes 1.4 thou/uL (1.20-3.40); #Monocytes 0.5 thou/uL (0.11-0.59); %Basophils 0.9 % (0.0-1.0); %Eosinophils 4.7 % (0.0-10.0); %Lymphocytes 27.3 % (21.0-51.0); %Monocytes 9.7 % (0.0-10.0); %Neutrophils 57.4 % (42.0-75.0); Platelet Clumps SLIGHT
[2017-12-31 06:43] LABS: MDiff Complete? YES; Mean Platelet Volume 8.5 fL (7.4-10.4); Platelet Count 138 thou/uL (130-400)
--- NOTE | 2017-12-31 08:21 | PRG ---
DATE OF SERVICE: 12/31/2017 Ms. Rm is hospital day #3 having sustained a basilar artery thrombus versus stenosis. I have discus sed the patient's case with her daughter in great detail yesterday and at this time. Medicine has ad mitted the patient and rightfully so Neurology is following the patient. The patient is sleeping com fortably in bed, but awakens easily. She follows commands in all 4 extremities. She is oriented to person, understands that she is in the hospital, but is not oriented to date. At this time, there is no role for neurosurgical intervention as the patient has suffered a thrombolic versus basal artery stenotic ischemic stroke. Dr. Malik and I have discussed the patient's case in great detail on and discussed this with the ER physician as well. I do not think that she would be a good cand idate for Antonette thrombus retrieval by our colleague, Dr. Ignacio Cooper. Again, the case now is to im prove her medical function and maximize her antithrombic therapy. Again, I have discussed the lei bocanegra's case with her daughter yesterday in great detail. At this time, Neurosurgery will sign off as th ere is no role for neurosurgical intervention.
[2017-12-31] MEDS: Clopidogrel Bisulfate 75 MG TAB PO SCH (08:27)
[2017-12-31] MEDS: Atorvastatin Calcium 20 MG TAB PO SCH (08:27)
[2017-12-31] MEDS: levETIRAcetam 500 mg/5 ml Oral Solution PO SCH ×2 (08:28→21:45)
[2017-12-31] MEDS: Nebivolol HCl 5 MG TAB PO SCH ×2 (08:28→21:45)
[2017-12-31] MEDS: Ketotifen Fumarate 0.025% Ophth Soln 5 ml Bottle EA EYE SCH ×2 (08:28→21:45)
[2017-12-31] MEDS: Sodium Chloride 0.9% 1,000 ML IV SCH (10:30)
[2017-12-31] MEDS ORDERED: Acetaminophen 650 MG/20.3 ML UDCUP PO PRN (11:50)
--- NOTE | 2017-12-31 22:13 | PDOC.PN ---
- Subjective Encounter Start Date: 12/31/17 Encounter Start Time: 12:00 Subjective: nsg notes rev, caleb ovn, no new c/o, pt feels that there is someone -: who is standing outside her room and she doesn't know who it is -: oriented to self - Objective Resuscitation Status: Resuscitation Status DNR:Do Not Resuscitate Vital Signs & Weight: Vital Signs (12 hours) Temp Pulse Resp BP BP Pulse Ox 12/31/17 20:00 98.0 F 57 L 16 144/70 H 97 12/31/17 15:56 97.9 F 57 L 14 189/86 H 92 L 12/31/17 12:03 98.6 F 53 L 16 153/71 H 99 Weight Admit Weight 181 lb 11.2 oz Weight 181 lb 11.2 oz I&O: 12/30/17 12/31/17 01/01/18 06:59 06:59 06:59 Intake Total 3318 300 Output Total 400 Balance 2918 300 Result Diagrams: 01/01/18 04:48 01/01/18 04:48 Phys Exam - Physical Examination Constitutional: NAD HEENT: PERRLA, moist MMs, sclera anicteric Respiratory: no wheezing, no rales, no rhonchi, clear to auscultation bilateral reasonable air mvmt Cardiovascular: RRR, no significant murmur, no rub Gastrointestinal: soft, non-tender, positive bowel sounds Musculoskeletal: no edema, pulses present Neurological: moves all 4 limbs Psychiatric: normal affect Dx/Plan - Plan * 1. Altered mental status with decreased mentation, currently improving. * apprec neursurg c/s * apprec neurology c/s - has been continued on ASA and started on plavix * elev fall risk - PT consultation HTN, stable hypothyroidism, stable hx of sz, stable diet: as leah activity: PT as above. given elevated fall risk and need for A/C, she may be exceeding the capabilities of her current assisted living facility. would recommend considering residental nursing facility dvt ppx Review of Systems - Medications/Allergies Allergies/Adverse Reactions: Allergies Allergy/AdvReac Type Severity Reaction Status Date / Time No Known Drug Allergies Allergy Verified 12/29/17 21:58 Medications: Current Medications Acetaminophen (Tylenol) 650 mg [place] Q4H PRN PRN Reason: Headache/Fever or Pain Acetaminophen (Tylenol Elixir) 650 mg PO Q6H PRN PRN Reason: Pain Aspirin (Aspirin Chewable) 81 mg PO DAILY [facility] Last Admin: 01/01/18 09:10 Dose: 81 mg Atorvastatin Calcium (Lipitor) 20 mg PO DAILY [facility] Last Admin: 01/01/18 09:10 Dose: 20 mg Clopidogrel Bisulfate (Plavix) 75 mg PO DAILY [facility] Last Admin: 01/01/18 09:10 Dose: 75 mg Sodium Chloride (Normal Saline 0.9%) 1,000 mls @ 75 mls/hr IV .[id number] [facility] Last Admin: 01/01/18 02:13 Dose: 1,000 mls Ketotifen Fumarate (Zaditor 0.025% Ophth Soln) 1 drop EA EYE BID [facility] Last Admin: 01/01/18 09:10 Dose: 1 drop Labetalol HCl (Normodyne) 20 mg SLOW IVP Q1H PRN PRN Reason: BP > 220/110 Levetiracetam (Keppra Oral Solution) 250 mg PO BID [facility] Last Admin: 01/01/18 09:10 Dose: 250 mg Levothyroxine Sodium (Synthroid) 125 mcg PO 0600 [facility] Last Admin: 01/01/18 05:08 Dose: 125 mcg Memantine (Namenda) 5 mg PO BID [facility] Last Admin: 01/01/18 09:10 Dose: 5 mg Nebivolol (Bystolic) 10 mg PO BID [facility] Last Admin: 01/01/18 09:10 Dose: 10 mg Quetiapine Fumarate (Seroquel) 25 mg PO QPM [facility] Last Admin: 12/31/17 21:46 Dose: 25 mg
[2018-01-01] MEDS: Sodium Chloride 0.9% 1,000 ML IV SCH ×2 (02:13→17:02)
[2018-01-01] MEDS: Levothyroxine Sodium 125 MCG TAB PO SCH (05:08)
[2018-01-01 05:18] LABS: #Eosinphils 0.3 thou/uL (0.0-0.7); #Lymphocytes 1.5 thou/uL (1.20-3.40); #Monocytes 0.6 thou/uL (0.11-0.59); #Neutrophils 3.5 thou/uL (1.40-6.50); %Basophils 0.7 % (0.0-1.0); %Eosinophils 4.6 % (0.0-10.0); %Lymphocytes 25.1 % (21.0-51.0); %Monocytes 10.1 % (0.0-10.0); %Neutrophils 59.6 % (42.0-75.0); Hemoglobin 12.1 g/dL (12.0-16.0); Mean Corpuscular HGB CONC 33.9 g/dL (32.0-36.0); Mean Corpuscular Hemoglobin 32.6 pg (27.0-31.0); Mean Corpuscular Volume 96.2 fl (81.0-99.0); Mean Platelet Volume 7.8 fL (7.4-10.4); Platelet Count 140 thou/uL (130-400); RBC Distribution Width 12.5 % (11.5-14.5); White Blood Cell (WBC) Count 5.9 thou/uL (4.8-10.8)
[2018-01-01 05:37] LABS: Anion Gap 9 mmol/L (10-20); BUN (Urea Nitrogen) 16 mg/dL (9.8-20.1); Calc. Creatinine Clearance 68 mL/min (70-130); Calcium 8.5 mg/dL (7.8-10.44); Carbon Dioxide 25 mmol/L (23-31); Chloride 112 mmol/L (98-107); Estimated GFR-MDRD 69; Glucose 78 mg/dL (83-110); Potassium 3.5 mmol/L (3.5-5.1); Sodium 142 mmol/L (136-145)
[2018-01-01] MEDS: levETIRAcetam 500 mg/5 ml Oral Solution PO SCH ×2 (09:10→20:45)
[2018-01-01] MEDS: Nebivolol HCl 5 MG TAB PO SCH ×2 (09:10→20:48)
[2018-01-01] MEDS: Clopidogrel Bisulfate 75 MG TAB PO SCH (09:10)
[2018-01-01] MEDS: Atorvastatin Calcium 20 MG TAB PO SCH (09:10)
[2018-01-01] MEDS: Ketotifen Fumarate 0.025% Ophth Soln 5 ml Bottle EA EYE SCH ×2 (09:10→20:46)
--- NOTE | 2018-01-01 15:47 | PDOC.PN ---
- Subjective Encounter Start Date: 01/01/18 Encounter Start Time: 11:00 Subjective: nsg notes rev, caleb ovn, no new c/o, denies any GOLD, changes in -: vision, dizziness - Objective Resuscitation Status: Resuscitation Status DNR:Do Not Resuscitate Vital Signs & Weight: Vital Signs (12 hours) Temp Pulse Resp BP BP Pulse Ox 01/01/18 12:00 98.3 F 58 L 14 156/70 H 94 L 01/01/18 08:00 97.9 F 60 14 170/112 H 95 01/01/18 07:50 97.9 F 60 14 97 01/01/18 04:00 97.4 F L 60 12 155/69 H 96 Weight Admit Weight 181 lb 11.2 oz Weight 181 lb 11.2 oz I&O: 12/31/17 01/01/18 01/02/18 06:59 06:59 06:59 Intake Total 3318 1337 600 Output Total 400 Balance 2918 1337 600 Result Diagrams: 01/01/18 04:48 01/01/18 04:48 Phys Exam - Physical Examination Constitutional: NAD HEENT: PERRLA, sclera anicteric Respiratory: no wheezing, no rales, no rhonchi, clear to auscultation bilateral reasonable air mvmt Cardiovascular: RRR, no significant murmur, no rub Gastrointestinal: soft, non-tender, positive bowel sounds Musculoskeletal: pulses present Neurological: moves all 4 limbs Psychiatric: normal affect Dx/Plan - Plan * 87F hx CVA, sz, who p/w CC: AMS with decreased mentation, 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 * apprec neursurg c/s * apprec neurology c/s - has been continued on ASA and started on plavix * elev fall risk - PT consultation HTN, stable hypothyroidism, stable hx of sz, stable diet: as leah activity: PT as above. given elevated fall risk and need for A/C, she may be exceeding the capabilities of her current assisted living facility. would recommend considering residental nursing facility dvt ppx discharge planning based on location availability. apprec cm c/s Review of Systems - Medications/Allergies Allergies/Adverse Reactions: Allergies Allergy/AdvReac Type Severity Reaction Status Date / Time No Known Drug Allergies Allergy Verified 12/29/17 21:58 Medications: Current Medications Acetaminophen (Tylenol) 650 mg [place] Q4H PRN PRN Reason: Headache/Fever or Pain Acetaminophen (Tylenol Elixir) 650 mg PO Q6H PRN PRN Reason: Pain Aspirin (Aspirin Chewable) 81 mg PO DAILY [facility] Last Admin: 01/01/18 09:10 Dose: 81 mg Atorvastatin Calcium (Lipitor) 20 mg PO DAILY [facility] Last Admin: 01/01/18 09:10 Dose: 20 mg Clopidogrel Bisulfate (Plavix) 75 mg PO DAILY [facility] Last Admin: 01/01/18 09:10 Dose: 75 mg Sodium Chloride (Normal Saline 0.9%) 1,000 mls @ 75 mls/hr IV .[id number] [facility] Last Admin: 01/01/18 02:13 Dose: 1,000 mls Ketotifen Fumarate (Zaditor 0.025% [facility]) 1 drop EA EYE BID [facility] Last Admin: 01/01/18 09:10 Dose: 1 drop Labetalol HCl (Normodyne) 20 mg SLOW IVP Q1H PRN PRN Reason: BP > 220/110 Levetiracetam (Keppra Oral Solution) 250 mg PO BID [facility] Last Admin: 01/01/18 09:10 Dose: 250 mg Levothyroxine Sodium (Synthroid) 125 mcg PO 0600 [facility] Last Admin: 01/01/18 05:08 Dose: 125 mcg Memantine (Namenda) 5 mg PO BID [facility] Last Admin: 01/01/18 09:10 Dose: 5 mg Nebivolol (Bystolic) 10 mg PO BID [facility] Last Admin: 01/01/18 09:10 Dose: 10 mg Quetiapine Fumarate (Seroquel) 25 mg PO QPM [facility] Last Admin: 12/31/17 21:46 Dose: 25 mg
[2018-01-02] MEDS: Sodium Chloride 0.9% 1,000 ML IV SCH ×2 (03:38→17:50)
[2018-01-02] MEDS: Levothyroxine Sodium 125 MCG TAB PO SCH (05:38)
[2018-01-02] MEDS: levETIRAcetam 500 mg/5 ml Oral Solution PO SCH (08:37)
[2018-01-02] MEDS: Clopidogrel Bisulfate 75 MG TAB PO SCH (08:37)
[2018-01-02] MEDS: Nebivolol HCl 5 MG TAB PO SCH (08:37)
[2018-01-02] MEDS: Atorvastatin Calcium 20 MG TAB PO SCH (08:37)
[2018-01-02] MEDS: Ketotifen Fumarate 0.025% Ophth Soln 5 ml Bottle EA EYE SCH (08:38)
--- NOTE | 2018-01-02 14:37 | PQF ---
CLINICAL DOCUMENTATION IMPROVEMENT CLARIFICATION FORM: ICD-10 Updated PLEASE DO AN ADDENDUM TO THE PROGRESS NOTE WITH ANY DOCUMENTATION UPDATES OR ADDITIONS AND CARRY THROUGH TO DC SUMMARY. THANK YOU. DATE: 01/02/18 ATTN: Dr. Kelley Please exercise your independent, professional judgment in responding to the clarification form. Clinical indicators are provided on the bottom of this form for your review Please check appropriate box(s): [ x ] Encephalopathy: Etiology: [ x ] Hypertensive [ ] Metabolic [ ] in the setting of underlying dementia [ ] Unspecified [ ] Other (please specify) Type: [ x ] Acute [ ] Subacute [ ] Chronic [ ] Transient Alteration of Awareness [ ] Other diagnosis [ ] Unable to determine In addition, please specify: Present on Admission (POA): [ x ] Yes [ ] No [ ] Unable to determine For continuity of documentation, please document condition throughout progress notes and discharge summary. Thank You. CLINICAL INDICATORS - SIGNS / SYMPTOMS / LABS NEUROLOGY CONSULT: ALTERED MENTAL STATUS, LIKELY TOXIC METABOLIC ENCEPHALOPATHY VS. TRANSIENT ISCHEMIC ATTACK VS. HYPERTENSIVE URGENCY. 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 RISKS: H&P: HX OF MENINGIOMA, S/P RESECTION IN 2017. HX OF SZ DISORDER. DEMENTIA. HX OF CVA INCLUDING REMOTE LACUNAR INFARCTS. HX OF CHRONIC A FIB. HTN. TREATMENT: NEUROLOGY CONSULT CPOE 3: NAMENDA 5 MG PO BID [facility]PO[facility] 330: BYSTOLIC 10 MG PO BID [facility]PO[facility] 330: ASPIRIN 81 MG PO DAILY [facility]PO[facility] 330: PLAVIX 75 MG PO DAILY Thank you, Alea (This form is maintained as a part of the permanent medical record) 2015 [employer] All Rights Reserved Alea Simons RN, BSN [email or web address] Office: [phone] [facility]
[2018-01-02 16:00] VITALS: BP 138/82; TEMP 98.2
--- NOTE | 2018-01-03 13:09 | DIS ---
DISCHARGE DIAGNOSES: 1. Metabolic encephalopathy, resolved. 2. Basilar artery thrombus, stable. BRIEF SUMMARY OF HOSPITAL COURSE: This is an 87-year-old female with a known history of CVA, post-CV A seizures, who presented with an initial chief complaint of altered mental status, predominantly dec reased mentation. Please see the original history and physical for full details regarding her admiss ion. The patient underwent imaging, which demonstrated a basilar artery thrombus. The patient's altered m ental status with her decreased mentation resolved at the time of discharge and was felt to represent a component of metabolic encephalopathy secondary to underlying neurological issues. She was also s een by Neurology in consultation along with Neurosurgery in consultation. At the time of discharge, she has been initiated on Plavix and will also continue on aspirin as well. Given her new anticoagul ation status, she was also seen by physical therapy out of concern for being an elevated fall risk. The patient will certainly need continued work with physical therapy given her need for anticoagulati on and elevated fall risk. Case management was consulted during the hospitalization for placement as it is felt that she was exceeding the capabilities of her current assisted living facility. The remainder of the patient's chronic medical issues including her hypertension and hypothyroidism h ave remained stable during this hospitalization. The patient also did not demonstrate any other sign s or symptoms consistent with a repeat seizure during this hospitalization. CONSULTATIONS: 1. Neurosurgery. 2. Neurology. DISCHARGE MEDICATIONS: The patient will continue on her home medications with the addition of Plavix 75 mg p.o. daily. DISCHARGE FOLLOWUP: The patient was asked to follow up closely with her outpatient team including he primary care provider and her neurologist. DISCHARGE INSTRUCTIONS: At the time of discharge, she is being discharged to a [facility]. She will need continued physical therapy and occupational therapy. PATIENT'S CONDITION AT DISCHARGE: At the time of discharge, the patient is hemodynamically stable. She is tolerating her baseline diet and is participatory with physical therapy. SIGNIFICANT LABORATORY AND IMAGING: On 01/01/2018, WBC 5.9, hemoglobin 12.1, hematocrit 35.6, platel ets 140. Sodium 142, potassium 3.2, chloride 112, bicarbonate 25, BUN 16, creatinine 0.7, glucose 78 . On 12/29/2017, CTA of the head and neck. Impression, "occlusion of the basilar tip with thrombus extending to the proximal right posterior cerebral artery and poor visualization of the left posterio r cerebral artery. Overall, this thrombus measures approximately 3 mm in length. 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 Large penumbra of viable tissue at risk for ischemia within the bilateral MANAGER [employer] territory at the left yvette as well of the superior cerebellum." Thank you for asking me to care for your patient. Greater than 30 minutes spent coordinating discharge for the patient. Questions or concerns, contact me at [facility].
--- NOTE | 2018-01-07 20:42 | EKG ---
Test Reason : Blood Pressure : / mmHG Vent. Rate : 068 BPM Atrial Rate : 068 BPM P-R Int : 218 ms QRS Dur : 082 ms QT Int : 448 ms P-R-T Axes : 074 -03 113 degrees QTc Int : 476 ms Sinus rhythm with 1st degree A-V block with occasional Premature ventricular complexes Possible Left atrial enlargement Septal infarct , age undetermined Abnormal ECG Confirmed by NATALIA REY ([id number]), book or script editor MARIA ISABEL HARLEY ([id number]) on 01/07/2018 8:41:10 PM Referred By: Confirmed By:NATALIA REY
== END 2018-01-02 17:58 | disposition home or self-care (01) | DRG 64 ==
LOC: ERS 16:00 → 2SE 18:08
PROVIDERS: ADMIT Internal Medicine; ATTEND Internal Medicine
DX: I63.02 Cerebral infarction due to thrombosis of basilar artery (principal); G93.41 Metabolic encephalopathy; I48.2 Chronic atrial fibrillation; I67.4 Hypertensive encephalopathy; R56.9 Unspecified convulsions; H53.461 Homonymous bilateral field defects, right side; F03.90 Unspecified dementia, unspecified severity, without behavioral disturbance, psychotic disturbance, mood disturbance, and anxiety; I69.398 Other sequelae of cerebral infarction; E03.9 Hypothyroidism, unspecified; I10 Essential (primary) hypertension; I65.01 Occlusion and stenosis of right vertebral artery; R41.82 Altered mental status, unspecified; R29.810 Facial weakness; R29.706 NIHSS score 6; R40.2362 Coma scale, best motor response, obeys commands, at arrival to emergency department; R40.2142 Coma scale, eyes open, spontaneous, at arrival to emergency department; R40.2242 Coma scale, best verbal response, confused conversation, at arrival to emergency department; R47.81 Slurred speech; R51 Headache; Z66 Do not resuscitate
CPT/HCPCS: 0042T; 36415; 36416; 70450; 70496; 70498; 71045; 80048; 80053; 80061; 81003; 81015; 82553; 83735; 84443; 84484; 85025; 85610; 85730; 93005; G8978-GP-CK; G8979-GP-CI; G8987-GO-CJ; G8988-GO-CI; G8996-GN-CI; G8997-GN-CI; J2997

== ENCOUNTER 2018-03-20 13:38 | Outpatient (CLI) | payer MEDICARE, BC ==
[~2018-03-20 13:38] MED LIST changes: +Gadobenate Dimeglumine 529 MG/1 ML (20ML VIAL) ONE; -ISOVUE-370 76%-LOCM 1 ML ONE
--- NOTE | 2018-03-20 15:40 | MRI ---
PRE AND POST CONTRAST ENHANCED MR IMAGES OF THE BRAIN: Date: 03-20-18 Comparison: 08-17-17 Technique: Multiplanar, multisequence MRI images were obtained of the brain obtained pre and post con trast enhancement. FINDINGS: Images demonstrate areas of encephalomalacia in the left occipital lobe and left parietal lobe, areas of gliosis. Encephalomalacia changes also seen in the left frontal lobe region. These areas are unch anged since the previous exam compatible with post-surgical changes seen in the left frontal lobe and old areas of stroke in the left occipital region. MRI appearance is stable. No newly developed barrett s or lesions seen. No significant interval changes noted. No evidence of areas of diffuse restriction seen to suggest acute strokes. IMPRESSION: Stable MRI appearance of the brain with post-surgical changes seen in the left frontal lobe and areas of old stroke seen in the left parietal and occipital regions. POS: HREBIE
== END 2018-03-20 13:39 | disposition home or self-care (01) ==
LOC: TBSIIMAG 13:38
PROVIDERS: ATTEND Surgery
DX: D33.2 Benign neoplasm of brain, unspecified (principal); Z98.890 Other specified postprocedural states
CPT/HCPCS: 70553; 82565; A9579